=== PATIENT | female | born 1985 | race Two or more races ===

== ENCOUNTER 2024-03-28 21:30 | Emergency (ER) | payer MEDICAID ==
[2024-03-28 22:31] VITALS: BP 109/74; PULSE 103; RESP 16; TEMP 97.8
[2024-03-29 01:14] VITALS: O2SAT 96
[2024-03-29] MEDS: TETANUS-DIPTH-ACEL PERTUSSIS 0.5ML SYR Tdap IM ONE (01:23)
== END 2024-03-29 01:34 | disposition home or self-care (01) ==
LOC: ER 21:30
DX: S61.217A Laceration without foreign body of left little finger without damage to nail, initial encounter (principal); W26.8XXA Contact with other sharp object(s), not elsewhere classified, initial encounter; Y93.89 Activity, other specified; Y92.89 Other specified places as the place of occurrence of the external cause; Y99.8 Other external cause status
CPT/HCPCS: 12001; 90471; 90715

== ENCOUNTER 2025-04-15 12:23 | Inpatient (IN) | payer MEDICAID ==
[~2025-04-15] VITALS: Ht 165.1 cm; Wt 87.9 kg
[2025-04-15 13:50] LABS: Basophils # (auto) 0.1 10 ^3/uL (0-0.2); Basophils % (auto) 0.6 % (0.0-2.0); Eosinophils # (auto) 0.2 10 ^3/uL (0-0.8); Hematocrit 45.7 % (36.0-46.0); Hemoglobin 15.3 g/dL (12.2-16.2); Lymphocytes # (auto) 2.5 10 ^3/uL (0.4-5.4); Lymphocytes % (auto) 26.9 % (10.0-50.0); Mean Corpuscular Hemoglobin 28.5 pg (28.0-32.0); Mean Corpuscular Hgb Conc. 33.6 g/dL (32.0-36.0); Mean Corpuscular Volume 84.8 fL (80.0-100.0); Monocytes # (auto) 0.7 10 ^3/uL (0-1.3); Monocytes % (auto) 7.9 % (0.0-12.0); Neutrophils # (auto) 5.9 10 ^3/uL (1.6-8.6); Neutrophils % (auto) 62.6 % (37.0-80.0); Nucleated Red Blood Cells % 0.2 %; Platelet Count (auto) 283 10^3/uL (140-450); Red Blood Cells 5.39 10^6/uL (4.0-5.20); Red Cell Distribution Width 13.8 % (11.8-14.3); White Blood Cell 9.4 10^3/uL (4.4-10.8)
[2025-04-15 13:54] LABS: Potassium 3.5 mmol/L (3.5-5.1); Sodium 141 mmol/L (136-145)
[2025-04-15 13:55] LABS: Anion Gap 6 (5-15); Carbon Dioxide 27 mmol/L (20-31)
[2025-04-15 13:56] LABS: Calcium 9.3 mg/dL (8.7-10.4); Chloride 108 mmol/L (98-107)
[2025-04-15 14:00] LABS: BUN/Creatinine Ratio 15.6 (10.0-20.0); Blood Urea Nitrogen 10 mg/dL (9-23)
[2025-04-15 14:01] LABS: Glucose 110 mg/dL (74-106)
[2025-04-15 14:15] LABS: Urine Bacteria None Seen /hpf (None Seen)
[2025-04-15 14:23] LABS: Urine Blood Negative /uL (Negative); Urine Clarity Clear (Clear); Urine Color Yellow (Yellow); Urine Mucus FEW (None Seen); Urine Protein, UAD Negative (Negative); Urine Specific Gravity 1.024 (1.001-1.035); Urine Squamous Epithelial Cell FEW /hpf (<5); Urine Urobilinogen Normal (Negative); Urine WBC 1 /HPF (0-5)
--- NOTE | 2025-04-15 14:37 | ED.PDOC ---
History of Present Illness HPI Comments 39-year-old female presents to the ER with daughter and the surgical history of , tubal removal and the chief complaint of rectal bleeding. Pt reports that in September of the year 2023, she was diagnosed with ulcerative colitis. Patient states that on of 04/08/2025, the patient had rectal bleeding, but ended the same day. Patient notes that the reason she is here today is because she had rectal bleeding for the past two days. Denies chills, fever, N/V/D, SOB, CP. No other associated symptoms, modifiers, recent injuries or sick contacts present at this time. Chief Complaint: GI Bleed Time Seen by MD: 14:00 Primary Care Provider: GROSS Reviewed Notes: Nurses Notes, Medications, Allergies Allergies: Coded Allergies: NO KNOWN ALLERGIES (Unverified , 11/26/14) Information Source: Patient Mode of Arrival: Ambulatory Severity: Moderate Timing: Days Duration: Since onset, Days Prehospital treatment: None Past Medical History PAST MEDICAL HISTORY: Denies Surgical History: Surgical History (Other): tubal removed STUDENT SUCCESS COUNSELOR History: No Pertinent STUDENT SUCCESS COUNSELOR History Family History Family History: Reviewed,noncontributory to illness, Unknown Social History Smoker: Non-Smoker Alcohol: Denies ETOH Use Drugs: Denies Drug Use Lives In: Home Constitutional: denies: chills, diaphoresis, fatigue, fever, malaise, sweats, weakness, others EENTM: denies: blurred vision, double vision, ear bleeding, ear discharge, ear drainage, ear pain, ear ringing, eye pain, eye redness, hearing loss, mouth pain, mouth swelling, nasal discharge, nose bleeding, nose congestion, nose pain, photophobia, tearing, throat pain, throat swelling, voice changes, others Respiratory: denies: cough, hemoptysis, orthopnea, SOB at rest, shortness of breath, SOB with excertion, stridor, wheezing, others Cardiovascular: denies: chest pain, dizzy spells, diaphoresis, Dyspnea on exertion, edema, irregular heart beat, left arm pain, lightheadedness, palpitations, PND, syncope, others Gastrointestinal: reports: rectal bleeding; denies: abdomen distended, abdominal pain, blood streaked bowels, constipated, diarrhea, dysphagia, diff iculty swallowing, hematemesis, melena, nausea, poor appetite, poor fluid intake, rectal pain, vomiting, others Genitourinary: denies: abnormal vagina bleeding, burning, dyspareunia, dysuria, flank pain, frequency, hematuria, incontinence, pain, , vagina discharge, urgency, others Neurological: denies: dizziness, fainting, headache, left sided numbness, left sided weakness, numbness, paresthesia, pre-existing deficit, right sided numbness, right sided weakness, seizure, speech problems, tingling, tremors, weakness, others Musculoskeletal: denies: back pain, gout, joint pain, joint swelling, muscle pain, muscle stiffness, neck pain, others Integumetry: denies: bruises, change in color, change in hair/nails, dryness, laceration, lesions, lumps, rash, wounds, others Allergic/Immunocompromised: denies: Difficulty Healing, Frequent Infections, Hives, Itching, others Hematologic/Lymphatic: denies: anemia, blood clots, easy bleeding, easy bruising, swollen glands, others Endocrine: denies: excessive hunger, excessive sweating, excessive thirst, excessive urination, flushing, intolerance to cold, intolerance to heat, unexplained weight gain, unexplained weight loss, others Psychiatric: denies: anxiety, bipolar disorder, depression, hopeless, panic disorder, schizophrenia, sleepless, suicidal, others All Other Systems: Reviewed and Negative Physical Exam General Appearance: No Apparent Distress, Normal HEENT: Normal ENT Inspection, Pharynx Normal, TMs Normal Neck: Full Range of Motion, Non-Tender, Normal, Normal Inspection Respiratory: Chest Non-Tender, Lungs Clear, No Accessory Muscle Use, No Re spiratory Distress, Normal Breath Sounds Cardiovascular: No Edema, No JVD, No Murmur, No Gallop, Normal Peripheral Pulses, Regular Rate/Rhythm Breast Exam: Deferred Gastrointestinal: No Organomegaly, Non Tender, No Pulsatile Mass, Normal Bowel Sounds, Soft Genitalia: Deferred Pelvic: Deferred Rectal: Deferred Extremities: No calf tenderness, Normal capillary refill, Normal inspection, Normal range of motion, Non-tender, No pedal edema Musculoskeletal : Apperance: Normal Neurologic: Alert, gynaecological oncologist II-XII nml as Tested, No Motor Deficits, Normal Affect, Normal Mood, No Sensory Deficits Cerebellar Function: Normal Reflexes: Normal Skin: Dry, Normal Color, Warm Lymphatic: No Adenopathy Was a procedure done? Was a procedure done?: No Differential Dx Considerations may include: Crohn's flare, ulcerative colitis flare, enteritis, infectious etiology X-Ray, Labs, Meds, VS Vital Signs Date Time Temp Pulse Resp B/P (MAP) Pulse Ox O2 Delivery O2 Flow Rate FiO2 04/15/25 13:43 98.6 91 18 117/75 (89) 98 98.6 04/15/25 12:33 98.0 106 16 114/77 (89) 97 98.0 Lab Test 04/15/25 13:33 04/15/25 12:34 Range/Units White Blood Count 9.4 4.4-10.8 10^3/uL Red Blood Count 5.39 H 4.0-5.20 10^6/uL Hemoglobin 15.3 12.2-16.2 g/dL Hematocrit 45.7 36.0-46.0 % Mean Corpuscular Volume 84.8 80.0-100.0 fL Mean Corpuscular Hemoglobin 28.5 28.0-32.0 pg Mean Corpuscular Hemoglobin Concent 33.6 32.0-36.0 g/dL Red Cell Distribution Width 13.8 11.8-14.3 % Platelet Count 283 140-450 10^3/uL Mean Platelet Volume 7.2 6.9-10.8 fL Neutrophils (%) (Auto) 62.6 37.0-80.0 % Lymphocytes (%) (Auto) 26.9 10.0-50.0 % Monocytes (%) (Auto) 7.9 0.0-12.0 % Eosinophils (%) (Auto) 2.0 0.0-7.0 % Basophils (%) (Auto) 0.6 0.0-2.0 % Neutrophils # (Auto) 5.9 1.6-8.6 10 ^3/uL Lymphocytes # (Auto) 2.5 0.4-5.4 10 ^3/uL Monocytes # (Auto) 0.7 0-1.3 10 ^3/uL Eosinophils # (Auto) 0.2 0-0.8 10 ^3/uL Basophils # (Auto) 0.1 0-0.2 10 ^3/uL Nucleated Red Blood Cells 0.2 % Sodium Level 141 136-145 mmol/L Potassium Level 3.5 3.5-5.1 mmol/L Chloride Level 108 H 98-107 mmol/L Carbon Dioxide Level 27 20-31 mmol/L Anion Gap 6 5-15 Blood Urea Nitrogen 10 9-23 mg/dL Creatinine 0.64 0.550-1.02 mg/dL Glomerular Filtration Rate Calc 116 >90 mL/min BUN/Creatinine Ratio 15.6 10.0-20.0 Serum Glucose 110 H 74-106 mg/dL Calcium Level 9.3 8.7-10.4 mg/dL Beta HCG, Quantitative 0.7 L 1.5-4.2 mIU/mL Urine Color Yellow Yellow Urine Clarity Clear Clear Urine pH 6.0 5.0-9.0 Urine Specific [place] 1.024 1.001-1.035 Urine Protein Negative Negative Urine Ketones Negative Negative Urine Blood Negative Negative /uL Urine Nitrite Negative Negative Urine Bilirubin Negative Negative Urine Urobilinogen Normal Negative mg/dL Urine Leukocyte Esterase Negative Negative /uL Urine RBC 1 0 - 4 /hpf Urine Microscopic WBC 1 0-5 /HPF Urine Squamous Epithelial Cells Few <5 /hpf Urine Bacteria None seen None Seen /hpf Urine Mucus Few None Seen Urine Glucose Normal Normal mg/dL Urine Test Negative Negative [place] [address] Ph: [phone] DIAGNOSTIC IMAGING Diagnostic Imaging Report : [id number] Signed PATIENT: ALLIE WHEELER ACCT: [id number] UNIT: [id number] : 1985 LOC: ER ROOM / BED: / AGE / SEX: 39 / F ADM STATUS: REG ER SERVICE [id number] ORDERING PHYSICIAN: RENATA AQUINO MD PROCEDURE(s): ABPLIV - CT AB PEL WITH IV CON ONLY REASON: abdominal pain, brbpr ORDER NUMBER(s): [id number], ACCESSION NUMBER(s): [id number] Indication: abdominal pain, brbpr Technique: CT axial images of the abdomen and pelvis are obtained with i ntravenous contrast. Coronal and sagittal reformats were obtained. Radiation Dose Information: CTDI volume is 14.3 mGy. Dose-length product is 157 mGy*cm Comparison: None FINDINGS: Lung bases demonstrate atelectasis. Adrenal glands, spleen, pancreas unremarkable. Hepatic steatosis. 8 mm right hepatic lobe / hepatic dome hypervascular lesion. No CT evidence for cholelithiasis. The kidneys demonstrate no hydronephrosis. Stomach is partially distended. Small bowel loops are normal in caliber. Colonic diverticula. Moderate volume stool in the colon. Normal appendix. Abdominal aorta normal in caliber. Bladder partially distended. Right ovarian/ adnexal cystic lesion with septation measuring 6 cm. Left ovarian cystic lesions measuring 3.6 cm, 2.7 cm. No free pelvic fluid. No inguinal lymphadenopathy. Mild thoracolumbar degenerative disc disease. IMPRESSION: 1. Bilateral ovarian/adnexal cystic lesions including complex right ovarian / adnexal cystic lesion with septation measuring 6 cm. Recommend pelvic ultrasound to further characterize. 2. Colonic diverticular disease. 3. Hepatic steatosis. 4. Right hepatic lobe hypervascular lesion measuring 8 mm which can be further characterized on multiphasic MRI abdomen. 5. Other findings as described. ATED BY: ARTEMIO DICKSON MD DICTATED DATE/TIME: 04/15/25 1524 SIGNED BY: ARTEMIO DICKSON MD SIGNED DATE/TIME: 04/15/25 1524 CC: Time of 1ST Reevaluation: 14:30 Reevaluation 1ST: Unchanged Patient Education/Counseling: Diagnosis, Treatment, Prognosis Family Education/Counseling: Diagnosis, Treatment, Prognosis Departure 1 Departure Time of Disposition: 16:29 (Patient presented with bright red blood per rectum and abdominal pain that was concerning for possible appendicits, gastritis, cholecystitis, colitis, gastroenteritis, sbo, Crohn's disease, ulcerative colitis, or orther possible surgical emergency. Data: 1. I ordered and reviewed the result of at least 3 labs including a CBC, BMP, and Urinalysis. 2. I independently interpreted the following tests: CT Abdoment and Pelvis is concerning for colitis flare .Risk:This patient has a high risk of morbidity due to further diagnostic testing or treatment and may suffer from an acute abdominal process disorder. Workup reveals colitis flare multiple cystic structures from the ovaries. and patient should be admitted for further workup. and possible expert consultation. ) Impression: Primary Impression: Bright red blood per rectum Disposition: ADMITTED INPATIENT Admit to: Med Surg Condition: Serious Critical Care Note Critical Care Time?: Yes Critical care comment: Acute GI bleed Authorized and Performed by: Renata Aquino MD Total critical care time: Approximately 38 minutes Due to a high probability of clinically significant, life threatening de terioration, the patient required my highest level of preparedness to intervene emergently and I personally spent this critical care time directly and personally managing the patient. This critical care time included obtaining a history; examining the patient; pulse oximetry; ordering and review of studies; arranging urgent treatment with development of a management plan; evaluation of patient's response to treatment; frequent reassessment; and, discussions with other providers. This critical care time was performed to assess and manage the high probability of imminent, life-threatening deterioration that could result in multi-organ failure. It was exclusive of separately billable procedures and treating other patients and teaching time. Please see my other sections and the rest of the note for further information on patient assessment and treatment. Stability Stability form required: No I personally scribed for RENATA AQUINO MD ([email or web address]) on 04/15/25 at 14:37. Electronically submitted by Tank Vargas ([email or web address]). I personally scribed for RENATA AQUINO MD ([email or web address]) on 04/15/25 at 15:37. Electronically submitted by Tank Vargas ([email or web address]). RENATA AQUINO MD April 15, 2025 14:37
[2025-04-15] MEDS: IOHEXOL 300 MG/ML 100ML BOTTLE IJ ONE (14:51)
--- NOTE | 2025-04-15 15:27 | DVH ---
Indication: abdominal pain, brbpr Technique: CT axial images of the abdomen and pelvis are obtained with intravenous contrast. Coronal and sagittal reformats were obtained. Radiation Dose Information: CTDI volume is 14.3 mGy. Dose-length product is 157 mGy*cm Comparison: None FINDINGS: Lung bases demonstrate atelectasis. Adrenal glands, spleen, pancreas unremarkable. Hepatic steatosis. 8 mm right hepatic lobe / hepatic dome hypervascular lesion. No CT evidence for cholelithiasis. The kidneys demonstrate no hydronephrosis. Stomach is partially distended. Small bowel loops are normal in caliber. Colonic diverticula. Moderate volume stool in the colon. Normal appendix. Abdominal aorta normal in caliber. Bladder partially distended. Right ovarian/ adnexal cystic lesion with septation measuring 6 cm. Left ovarian cystic lesions measuring 3.6 cm, 2.7 cm. No free pelvic f luid. No inguinal lymphadenopathy. Mild thoracolumbar degenerative disc disease. IMPRESSION: 1. Bilateral ovarian/adnexal cystic lesions including complex right ovarian / adnexal cystic lesion w ith septation measuring 6 cm. Recommend pelvic ultrasound to further characterize. 2. Colonic diverticular disease. 3. Hepatic steatosis. 4. Right hepatic lobe hypervascular lesion measuring 8 mm which can be further characterized on multi phasic MRI abdomen. 5. Other findings as described.
[2025-04-15] MEDS: ONDANSETRON HCL 4 MG/2 ML VIAL IV ONE (20:50)
[2025-04-15] MEDS: MORPHINE SULFATE 4 MG/ML SYR/VIAL IV ONE (20:51)
[2025-04-15] MEDS: SODIUM CHLORIDE 0.9% 1,000 ML IV ONE ×2 (20:52→22:45)
[2025-04-15] MEDS: DexAMETHasone SOD PHOS 10MG/1ML VIAL INJ IV ONE (20:52)
[2025-04-15] MEDS ORDERED: MORPHINE SULFATE INJ 2 MG/ml SYRG IV PRN ×2 (22:45)
[2025-04-15] MEDS ORDERED: HYDROcodone-ACET 5/325MG TAB PO PRN (22:45)
[2025-04-15] MEDS ORDERED: NITROGLYCERIN 0.4 MG SL TAB SL PRN (22:45)
[2025-04-15] MEDS ORDERED: ACETAMINOPHEN 325 MG TAB PO PRN (22:45)
[2025-04-16] VITALS (7 sets, daily range): BP systolic 104–125; BP diastolic 60–77; PULSE 72–107; RESP 16–22; TEMP 97.6–98.5; O2SAT 93–99
--- NOTE | 2025-04-16 01:27 | DVH ---
INDICATION: abnormal findings on ct TECHNIQUE: Multiple real-time grayscale transabdominal sonographic images along with color and duplex Doppler of the uterus and ovaries were obtained. COMPARISON: None Findings/ IMPRESSION: The uterus measures 9.1 x 5.0 x 4.5 cm. Multiple complex nabothian cysts are noted. Endometrium elzbieta sures 1.5 cm. Small amount of free fluid in the pelvic cul-de-sac. The right ovary measures 5.5 x 3. 3 x 6.6 cm. Complex right adnexal lesion measuring 4.3 x 5.3 x 3.3 cm. The left ovary measures 5.1 x 5.4 x 4.8 cm. Complex left renal cyst measuring 3.3 by 2.2 x 4.1 cm. Bilateral color doppler flow is visualized. In correlation with same-day CT abdomen pelvis , the complex cystic lesions do not demon strate solid components. These can be followed periodically with ultrasound or nonemergent MRI.
--- NOTE | 2025-04-16 03:51 | DVHHP2 ---
SAHARA IBARRA IMPORT COORDINATOR 04/16/25 0351: History of Present Illness Reason for Visit: BRBPR History of Present Illness 39-year-old female with pathological history of ulcerative colitis presents with complaints Of bright red blood per rectum Times five days. States rectal bleeding has been continuous. Patient endorsed she was diagnosed with all ulcerative colitis A year ago. Had [facility] last year. At this time patient denies fevers, chills, dizziness, Shortness of breath, chest pain, Nausea, vomiting. GI: Other (Ulcerative colitis) Smoke: No ALCOHOL: none Drugs: None, Marijuana Lives: with Family Review of Systems Constitutional: No: Fever, Chills, Sweats, Weakness, Malaise, Other Eyes: No: Pain, Vision change, Conjunctivae inflammation, Eyelid inflammation, Other, Redness ENT: No: Ear pain, Ear discharge, Nose pain, Nose discharge, Nose congestion, Mouth pain, Mouth swelling, Throat pain, Throat swelling, Other Respiratory: No: Cough, Dry, Shortness of breath, SOB with excertion, Wheezing, Hemoptysis, Pleuritic Pain, Sputum, Wheezing, Other Cardiovascular: No: Chest Pain, Palpitations, Orthopnea, Paroxysmal Noc. Dyspnea, Edema, Lt Headedness, Other Gastrointestinal: Abdominal Pain, Hematochezia; No: Nausea, Vomiting, Diarrhea, Constipation, Melena, Other Genitourinary: No Dysuria, No Frequency, No Incontinence, No Hematuria, No Retention, No Other Musculoskeletal: No: other, neck pain, shoulder pain, arm pain, back pain, hand pain, leg pain, foot pain Skin: No: Rash, Lesions, Jaundice, Bruising, Other Neurological: No: Weakness, Numbness, Incoordination, Change in speech, Confu nathan, Seizures, Other Allergies: Coded Allergies: NO KNOWN ALLERGIES (Unverified , 11/26/14) Medications Current Medications Medications Dose Ordered Sig/Piper Route Start Time Stop Time Status Last Admin Dose Admin Acetaminophen 650 mg Q6HP PRN PO 04/15/25 22:45 Acetaminophen/ Hydrocodone Bitart 1 tab Q4HP PRN PO 04/15/25 22:45 Ondansetron HCl 4 mg Q4HP PRN IV 04/15/25 22:45 Morphine Sulfate 2 mg Q4HPRN PRN IV 04/15/25 22:45 Nitroglycerin 0.4 mg Q5MINP PRN SL 04/15/25 22:45 Morphine Sulfate 2 mg Q30M PRN IV 04/15/25 22:45 Exam Vital Signs Vital Signs Date Time Temp Pulse Resp B/P (MAP) Pulse Ox O2 Delivery O2 Flow Rate FiO2 04/16/25 00:20 Room Air* 0 21 04/16/25 00:20 98.5 90 16 105/60 (75) 95 98.5 General Appearance: Alert, Oriented X3, Cooperative, mild distress HEENT: Atraumatic, PERRLA, EOMI Respiratory: Clear to auscultation, Normal air movement Cardiovascular: Regular rate, Normal S1, Normal S2 Abdominal: Normal bowel sounds, Soft, Other (mild tenderness) Extremities: No clubbing, No cyanosis, No edema Skin: No breakdown Neuro: Normal gait, Normal speech, Strength at /5 X4 ext Psych/Mental Status: Mental status NL, Mood NL Labs/Xrays Labs Test 04/15/25 13:33 04/15/25 12:34 Range/Units White Blood Count 9.4 4.4-10.8 10^3/uL Red Blood Count 5.39 H 4.0-5.20 10^6/uL Hemoglobin 15.3 12.2-16.2 g/dL Hematocrit 45.7 36.0-46.0 % Mean Corpuscular Volume 84.8 80.0-100.0 fL Mean Corpuscular Hemoglobin 28.5 28.0-32.0 pg Mean Corpuscular Hemoglobin Concent 33.6 32.0-36.0 g/dL Red Cell Distribution Width 13.8 11.8-14.3 % Platelet Count 283 140-450 10^3/uL Mean Platelet Volume 7.2 6.9-10.8 fL Neutrophils (%) (Auto) 62.6 37.0-80.0 % Lymphocytes (%) (Auto) 26.9 10.0-50.0 % Monocytes (%) (Auto) 7.9 0.0-12.0 % Eosinophils (%) (Auto) 2.0 0.0-7.0 % Basophils (%) (Auto) 0.6 0.0-2.0 % Neutrophils # (Auto) 5.9 1.6-8.6 10 ^3/uL Lymphocytes # (Auto) 2.5 0.4-5.4 10 ^3/uL Monocytes # (Auto) 0.7 0-1.3 10 ^3/uL Eosinophils # (Auto) 0.2 0-0.8 10 ^3/uL Basophils # (Auto) 0.1 0-0.2 10 ^3/uL Nucleated Red Blood Cells 0.2 % Sodium Level 141 136-145 mmol/L Potassium Level 3.5 3.5-5.1 mmol/L Chloride Level 108 H 98-107 mmol/L Carbon Dioxide Level 27 20-31 mmol/L Anion Gap 6 5-15 Blood Urea Nitrogen 10 9-23 mg/dL Creatinine 0.64 0.550-1.02 mg/dL Glomerular Filtration Rate Calc 116 >90 mL/min BUN/Creatinine Ratio 15.6 10.0-20.0 Serum Glucose 110 H 74-106 mg/dL Calcium Level 9.3 8.7-10.4 mg/dL Beta HCG, Quantitative 0.7 L 1.5-4.2 mIU/mL Urine Color Yellow Yellow Urine Clarity Clear Clear Urine pH 6.0 5.0-9.0 Urine Specific [place] 1.024 1.001-1.035 Urine Protein Negative Negative Urine Ketones Negative Negative Urine Blood Negative Negative /uL Urine Nitrite Negative Negative Urine Bilirubin Negative Negative Urine Urobilinogen Normal Negative mg/dL Urine Leukocyte Esterase Negative Negative /uL Urine RBC 1 0 - 4 /hpf Urine Microscopic WBC 1 0-5 /HPF Urine Squamous Epithelial Cells Few <5 /hpf Urine Bacteria None seen None Seen /hpf Urine Mucus Few None Seen Urine Glucose Normal Normal mg/dL Urine Test Negative Negative Assessment/Plan Assessment/Plan Ulcerative colitis Hematochezia Ovarian lesions 8mm hepatic lesion Plan Admit medical floor Consult gastroenterology Consult AUTO GARAGE MECH[employer]IC. Pelvic ultrasound. IVF Monitor CBC. MRI abdomen for liver nodule GI ppx protonix / dvt ppx scd Plan discussed with: Patient My Orders Orders - SAHARA IBARRA NP Procedure Category Date Status Time Admit ADMIT 04/15/25 Transmitted 22:32 Code Status CODE 04/15/25 Transmitted 22:32 Vital Signs JESUS 04/15/25 In Process 22:32 Review Orders With JESUS 04/15/25 In Process Adm. 22:32 Encourage Activity As JESUS 04/15/25 In Process Tolerate 22:32 Oxygen By Face Mask RT 04/15/25 Transmitted 22:32 Acetaminophen Tablet PHA 04/15/25 In Process (Tylenol Tablet) 22:45 Notify Of Changes JESUS 04/15/25 In Process From Base 22:32 Advance Directive JESUS 04/15/25 In Process 22:32 Basic Metabolic Panel LAB 04/16/25 Logged 05:00 Basic Metabolic Panel LAB 04/17/25 Verified 05:00 Basic Metabolic Panel LAB 04/18/25 Verified 05:00 Complete Blood Count LAB 04/16/25 Logged 05:00 Complete Blood Count LAB 04/17/25 Verified 05:00 Complete Blood Count LAB 04/18/25 Verified 05:00 Patient Condition ORDERS 04/15/25 Transmitted 22:32 Allergies JESUS 04/15/25 In Process 22:32 Hydrocodone-Acet PHA 04/15/25 In Process 5/325mg Tab (Kite 22:45 Ondansetron Hcl PHA 04/15/25 In Process (Zofran) 22:45 Ambulate Every 4hours JESUS 04/15/25 In Process 22:32 Morphine Sulfate PHA 04/15/25 In Process Injection 22:45 Sequential JESUS 04/15/25 In Process Compression Device Nitroglycerin PHA 04/15/25 In Process Sublingual (Ntrostat 22:45 Morphine Sulfate PHA 04/15/25 In Process Injection 22:45 Stat Ekg For Chest JESUS 04/15/25 In Process Pain 22:32 Notify Of Changes JESUS 04/15/25 In Process From Base 22:32 Educational Manager For JESUS 04/15/25 In Process 24 Hours 22:32 Emergency Dysrhythmia JESUS 04/15/25 In Process Protocol 22:32 Rhythm Strips Once JESUS 04/15/25 In Process Every Shift 22:32 Oxygen By Nasal RT 04/15/25 Transmitted Cannula 22:32 Pelvic US 04/15/25 Resulted 22:32 Mri Abdomen No MRI 04/15/25 Logged Contrast 22:32 *[facility] CONS 04/15/25 Transmitted 22:32 Sodium Chloride 0.9% PHA 04/15/25 In Process 22:45 Clear Liq Diet DIET 04/16/25 Transmitted Breakfast * Chief Supply Chain Officer Consultation CONS 04/15/25 Transmitted 22:40 Transvaginal Us Non Ob US 04/16/25 Taken 00:57 Hepatitis B Surface LAB 04/16/25 Logged Antigen 00:57 Hepatitis C Antibody LAB 04/16/25 Logged 00:57 Hepatitis B Surface LAB 04/16/25 Logged Antibody 00:57 Hepatitis C Antibody LAB 04/16/25 Logged 05:00 Date of Service: April 16, 2025 Billing Provider: MATT CARCAMO MD Common Visit Codes: NOT BILLABLE MATT CARCAMO MD 04/16/25 1652: Review of Systems Allergies: Coded Allergies: NO KNOWN ALLERGIES (Unverified , 11/26/14) Assessment/Plan Assessment/Plan Patient's chart is reviewed and discussed with the nurse practitioner. Patient is seen and evaluated by me today. I agree with the nurse practitioner's evaluation, documentation, assessment and care plan as outlined. SAHARA IBARRA NP April 16, 2025 03:51 MATT CARCAMO MD April 16, 2025 16:52
[2025-04-16] MEDS: ONDANSETRON HCL 4 MG/2 ML VIAL IV PRN (05:12)
[2025-04-16 05:31] LABS: Basophils # (auto) 0 10 ^3/uL (0-0.2); Basophils % (auto) 0.1 % (0.0-2.0); Eosinophils # (auto) 0 10 ^3/uL (0-0.8); Eosinophils % (auto) 0.1 % (0.0-7.0); Hematocrit 44.2 % (36.0-46.0); Hemoglobin 15.1 g/dL (12.2-16.2); Lymphocytes # (auto) 0.9 10 ^3/uL (0.4-5.4); Mean Corpuscular Hemoglobin 28.9 pg (28.0-32.0); Mean Corpuscular Hgb Conc. 34.2 g/dL (32.0-36.0); Mean Corpuscular Volume 84.6 fL (80.0-100.0); Monocytes # (auto) 0.1 10 ^3/uL (0-1.3); Monocytes % (auto) 1.1 % (0.0-12.0); Neutrophils # (auto) 7.6 10 ^3/uL (1.6-8.6); Neutrophils % (auto) 87.7 % (37.0-80.0); Nucleated Red Blood Cells % 0.1 %; Platelet Count (auto) 278 10^3/uL (140-450); Red Blood Cells 5.23 10^6/uL (4.0-5.20); Red Cell Distribution Width 13.8 % (11.8-14.3); White Blood Cell 8.7 10^3/uL (4.4-10.8)
[2025-04-16 05:32] LABS: Sodium 137 mmol/L (136-145)
[2025-04-16 05:33] LABS: Anion Gap 6 (5-15); Calcium 9.2 mg/dL (8.7-10.4); Carbon Dioxide 23 mmol/L (20-31)
[2025-04-16 05:37] LABS: Chloride 108 mmol/L (98-107)
[2025-04-16 05:38] LABS: BUN/Creatinine Ratio 15.7 (10.0-20.0); Blood Urea Nitrogen 11 mg/dL (9-23)
[2025-04-16 05:50] LABS: Glucose 192 mg/dL (74-106)
--- NOTE | 2025-04-16 08:41 | DVH ---
CLINICAL HISTORY: 39 years old, Female; hepatic lesion. TECHNIQUE: Multi sequence multi planar MRI images of the abdomen were obtained without IV contrast. COMPARISON: CT dated 04/15/2025. FINDINGS: Corresponding to the enhancing lesion seen in the posterior inferior right hepatic lobe on CT, there is a 0.8 cm T2 hyperintense lesion on this exam. Limited evaluation without postcontrast imaging. There is also a 0.5 cm T2 hyperintense lesion in the right hepatic lobe more superiorly near the dome, which is indeterminate. The spleen, pancreas, adrenal glands, and kidneys are unremarkable . No abdominal aortic aneurysm. No other significant findings are seen. IMPRESSION: Small liver lesions, corresponding to enhancing lesions on prior CT exam. Limited evaluation without postcontrast imaging. Liver mass protocol MRI without and with contrast recommended.
[2025-04-16 10:24] LABS: Hepatitis B Surface Antibody Positive (Negative); Hepatitis B Surface Antigen Negative (Negative)
[2025-04-16 10:36] LABS: Hepatitis C Antibody Negative (Negative)
[2025-04-16 12:58] LABS: Erythrocyte Sedimentation Rate 2 mm/hr (0-20)
--- NOTE | 2025-04-16 15:07 | DVHINCON2 ---
Date of service: April 16, 2025 Referring Physician hospitalist Reason for Consultation lesion on ovary History of Present Illness pt is admitted for ulcerative colitis,she has hx of ovarian cyst and salpingectomy. currently she has a babbitt spinner and is under his care.she denies having any pelvic pain. her last pap was in 2023 .pelvic us reveals 9wks size uterus with complex right adenxa Past Medical History ulcerative colitis Past Surgical History cs,salpingectomyabdominoplasty Family History na Social History na Allergies: Coded Allergies: NO KNOWN ALLERGIES (Unverified , 11/26/14) Current Medications Current Medications Medications (Trade) Dose Ordered Sig/Piper Route PRN Reason Start Time Stop Time Status Last Admin Acetaminophen (Tylenol Tablet) 650 mg Q6HP PRN PO PAIN SCALE 1-3 OR TEMP>100.4 04/15/25 22:45 Acetaminophen/ Hydrocodone Bitart (Echo 5/325MG Tab) 1 tab Q4HP PRN PO MODERATE PAIN (4-6 PAIN SCALE) 04/15/25 22:45 Ondansetron HCl (Zofran) 4 mg Q4HP PRN IV NAUSEA / VOMITING 04/15/25 22:45 04/16/25 05:12 Morphine Sulfate 2 mg Q4HPRN PRN IV SEVERE PAIN (7-10 PAIN SCALE) 04/15/25 22:45 Nitroglycerin (Ntrostat Sublingual) 0.4 mg Q5MINP PRN SL FOR CHEST PAIN 04/15/25 22:45 Morphine Sulfate 2 mg Q30M PRN IV FOR CHEST PAIN 04/15/25 22:45 Mesalamine (DELZICOL Delayed Release Capsule) 800 mg TID PO 04/16/25 14:00 Review of Systems Constitutional: no fever, chill, weight loss HEENT: no eye pain, no hearing loss, no oral lesion, no scleral icterus Heart: no chest pain, no chest pressure Lung: no cough, no dyspnea with exertion Abdomen: see HPI : no pain with urination, normal appearing urine Musculoskeletal: no joint pain, no muscle pain Neurological: no seizure, no loss of sensation, no weakness in extremities Pysch: no depression, no anxiety Derm: no rash, no jaundice Vital Signs Vital Signs Date Time Temp Pulse Resp B/P (MAP) Pulse Ox O2 Delivery O2 Flow Rate FiO2 04/16/25 12:56 97.6 72 19 114/71 (85) 97 97.6 04/16/25 08:00 Room Air* 0 21 Physical Exam SKIN: [nl] HEENT: [nl] NECK: [nl] CARDIAC: [rrr] PULMONARY: [cta] ABDOMEN: [soft,nt] pelvic- ext gent wnl,cx nl,uterus nl size,adenxa nt Labs/Diagnostic Data Labs Test 04/16/25 04:47 04/15/25 13:33 04/15/25 12:34 Range/Units White Blood Count 8.7 4.4-10.8 10^3/uL Red Blood Count 5.23 H 4.0-5.20 10^6/uL Hemoglobin 15.1 12.2-16.2 g/dL Hematocrit 44.2 36.0-46.0 % Mean Corpuscular Volume 84.6 80.0-100.0 fL Mean Corpuscular Hemoglobin 28.9 28.0-32.0 pg Mean Corpuscular Hemoglobin Concent 34.2 32.0-36.0 g/dL Red Cell Distribution Width 13.8 11.8-14.3 % Platelet Count 278 140-450 10^3/uL Mean Platelet Volume 7.5 6.9-10.8 fL Neutrophils (%) (Auto) 87.7 H 37.0-80.0 % Lymphocytes (%) (Auto) 11.0 10.0-50.0 % Monocytes (%) (Auto) 1.1 0.0-12.0 % Eosinophils (%) (Auto) 0.1 0.0-7.0 % Basophils (%) (Auto) 0.1 0.0-2.0 % Neutrophils # (Auto) 7.6 1.6-8.6 10 ^3/uL Lymphocytes # (Auto) 0.9 0.4-5.4 10 ^3/uL Monocytes # (Auto) 0.1 0-1.3 10 ^3/uL Eosinophils # (Auto) 0 0-0.8 10 ^3/uL Basophils # (Auto) 0 0-0.2 10 ^3/uL Nucleated Red Blood Cells 0.1 % Erythrocyte Sedimentation Rate 2 0-20 mm/hr Sodium Level 137 136-145 mmol/L Potassium Level 4.0 3.5-5.1 mmol/L Chloride Level 108 H 98-107 mmol/L Carbon Dioxide Level 23 20-31 mmol/L Anion Gap 6 5-15 Blood Urea Nitrogen 11 9-23 mg/dL Creatinine 0.70 0.550-1.02 mg/dL Glomerular Filtration Rate Calc 113 >90 mL/min BUN/Creatinine Ratio 15.7 10.0-20.0 Serum Glucose 192 H 74-106 mg/dL Calcium Level 9.2 8.7-10.4 mg/dL C-Reactive Protein High Sensitivity 0.22 <1.0 mg/dL Hepatitis B Surface Antigen Negative Negative Hepatitis B Surface Antibody Positive H Negative Hepatitis C Antibody Negative Negative Beta HCG, Quantitative 0.7 L 1.5-4.2 mIU/mL Urine Color Yellow Yellow Urine Clarity Clear Clear Urine pH 6.0 5.0-9.0 Urine Specific [place] 1.024 1.001-1.035 Urine Protein Negative Negative Urine Ketones Negative Negative Urine Blood Negative Negative /uL Urine Nitrite Negative Negative Urine Bilirubin Negative Negative Urine Urobilinogen Normal Negative mg/dL Urine Leukocyte Esterase Negative Negative /uL Urine RBC 1 0 - 4 /hpf Urine Microscopic WBC 1 0-5 /HPF Urine Squamous Epithelial Cells Few <5 /hpf Urine Bacteria None seen None Seen /hpf Urine Mucus Few None Seen Urine Glucose Normal Normal mg/dL Urine Test Negative Negative Primary Diagnosis ulcerative colitis 2' Diagnosis/Comorbidities complex right ovarian cyst Plan fu outpt with director of trauma since it appears to be asymptomatic no further intervention ,will sign off thank you Plan discussed with: Patient Visit Coding OBGYN Date of Service: April 16, 2025 Billing Provider: TONI QUIJANO DO [employer] Common Visit Codes: 20765-RXCYCKH OBS CARE (HIGH), 89611-RKW/OBS DISCH DAY >30MIN TONI QUIJANO DO April 16, 2025 15:07
[2025-04-16] MEDS: GOLYTELY 4L KIT PO ONE (16:47)
[2025-04-16] MEDS: MESALAMINE 400mg Delayed Release Cap PO SCH (18:07)
--- NOTE | 2025-04-16 19:41 | DVHINCON2 ---
DATE OF CONSULTATION: 04/16/2025 INPATIENT GI CONSULTATION NOTE REFERRING PHYSICIAN: Nurse practitioner, Naveed Valenzuela. REASON FOR CONSULTATION: Rectal bleeding. HISTORY OF PRESENT ILLNESS: This is a 39-year-old female who was recently diagnosed with ulcerative colitis with me in the clinic in 09/2024. At that time, she was treated with mesalamine and tapering prednisone and has been doing well. The patient at that time had severe diarrhea and diarrhea has appeared to resolve at that time. After treatment, the patient now presents to the hospital with complaints of recurrent rectal bleeding for the past day. She reports mucus in the stool and bowel movements have been hard and stool has been solid over the last several days. Workup in the ER including CT scan showed bilateral ovarian adnexal cystic lesion, colonic diverticular disease, hepatic steatosis, right hepatic lobe hypervascular lesion measuring 8 mm. There is evidence of moderate stool in the colon as well. The patient has had blood work showing normal hemoglobin at 15.1 and her creatinine is within normal limits. GI is consulted for further input. The patient reports that her symptoms are not consistent with her ulcerative colitis flare like she had back in 09/2024 where she had profuse diarrhea. The patient has been more constipated. The patient denies any abdominal pain as well. There have been no fevers or chills. She denies any NSAID use. Otherwise, her 10-point review of systems is negative. PAST MEDICAL HISTORY: Again noted for recent UC diagnosis, history of for surgery. ALLERGIES: The patient has no known drug allergies. FAMILY HISTORY: Noncontributory currently. PHYSICAL EXAM: VITALS SINGS: Shows temperature is 98, pulse 77, blood pressure is 122/77. GENERAL: She is alert and in no acute distress. She is mildly obese. OROPHARYNX: Dry. LUNGS: Clear. HEART: Regular rate. ABDOMEN: Soft, nondistended, nontender in the lower extremities. EXTREMITIES: No clubbing, cyanosis, or edema. DIAGNOSTIC LABS: Shows WBC is 8.7, hemoglobin 15.1, platelet count is 278, BUN is 11, creatinine 0.7. IMAGING STUDIES: The patient had followup imaging studies including pelvic ultrasound showing renal cysts, ovarian cysts. She also had a followup abdominal MRI with no contrast showing small liver lesion. It was recommended that the liver lesion be followed up with liver mass protocol without and with IV contrast. IMPRESSION: * Rectal bleeding. The patient had colonoscopy with me done in 09/2024 showing evidence of pancolitis. She also had hemorrhoids as well at that time and she was diagnosed with underlying ulcerative colitis. The differentials for her bleeding includes hemorrhoidal bleeding versus an early start of her ulcerative colitis flare. * History of ulcerative colitis. * Abnormal imaging showing possible liver lesion. Recommending repeat MRI with contrast liver protocol as recommended by Radiology. I will defer this to PMD. Recommendation at this time is to check CRP and sed rate. I will go ahead and start the patient on a clear liquid diet and give the patient GoLYTELY to see if this will help with her constipation. We will continue to monitor H and H daily. We will continue the patient on her mesalamine that she was taking as an outpatient and further recommendation will follow depending on her clinical course. MD MARCO Reynoso/GILBERT/LIN TID: [id number] RECEIPT: [id number]
[2025-04-17 01:00] VITALS: BP_SYST 114; BP_SYST 123; BP_DIAS 72; BP_DIAS 73; PULSE 72; PULSE 93; RESP 17; RESP 18; TEMP 97.9; O2SAT 96; O2SAT 97
[2025-04-17 05:00] VITALS: BP 105/63; PULSE 83; RESP 16; TEMP 97.9; O2SAT 98
[2025-04-17 06:50] LABS: Basophils # (auto) 0 10 ^3/uL (0-0.2); Basophils % (auto) 0.3 % (0.0-2.0); Eosinophils # (auto) 0 10 ^3/uL (0-0.8); Eosinophils % (auto) 0.3 % (0.0-7.0); Hematocrit 46.6 % (36.0-46.0); Hemoglobin 15.5 g/dL (12.2-16.2); Lymphocytes # (auto) 3.2 10 ^3/uL (0.4-5.4); Lymphocytes % (auto) 23.4 % (10.0-50.0); Mean Corpuscular Hemoglobin 28.4 pg (28.0-32.0); Mean Corpuscular Hgb Conc. 33.2 g/dL (32.0-36.0); Mean Corpuscular Volume 85.4 fL (80.0-100.0); Monocytes # (auto) 0.9 10 ^3/uL (0-1.3); Monocytes % (auto) 6.5 % (0.0-12.0); Neutrophils # (auto) 9.6 10 ^3/uL (1.6-8.6); Neutrophils % (auto) 69.5 % (37.0-80.0); Nucleated Red Blood Cells % 0.2 %; Platelet Count (auto) 295 10^3/uL (140-450); Red Blood Cells 5.46 10^6/uL (4.0-5.20); White Blood Cell 13.8 10^3/uL (4.4-10.8)
[2025-04-17 07:03] LABS: Anion Gap 11 (5-15); Carbon Dioxide 25 mmol/L (20-31); Sodium 143 mmol/L (136-145)
[2025-04-17 07:04] LABS: Calcium 9.8 mg/dL (8.7-10.4)
[2025-04-17 07:09] LABS: BUN/Creatinine Ratio 14.3 (10.0-20.0); Blood Urea Nitrogen 10 mg/dL (9-23); Glucose 99 mg/dL (74-106)
[2025-04-17 07:17] LABS: Chloride 107 mmol/L (98-107); Potassium 3.4 mmol/L (3.5-5.1)
[2025-04-17 08:00] VITALS: PULSE 78; RESP 18; O2SAT 95
[2025-04-17 08:24] VITALS: BP 98/55; PULSE 78; RESP 19; TEMP 98.2; O2SAT 98
--- NOTE | 2025-04-17 11:35 | DVH ---
EXAM: US Abdomen Limited, Right Upper Quadrant CLINICAL INDICATION: liver lesions TECHNIQUE: Real-time ultrasound of the right upper quadrant with image documentation. COMPARISON: None FINDINGS: LIVER: Fatty infiltration of the liver. Liver measures up to 15.2 cm. No intrahepatic bile duct d ilation. GALLBLADDER: Negative Celis's sign was reported by the truss driver helper. No gallstones. COMMON BILE DUCT: Unremarkable as visualized. No stones. No dilation. Common bile duct measures 0.35 cm in diameter. PANCREAS: Unremarkable as visualized. RIGHT KIDNEY: Unremarkable. No stones. No hydronephrosis. Right kidney measures 10.9 cm. OTHER FINDINGS: . IMPRESSION: 1. Fatty infiltration of the liver. 2. No obvious hepatic mass. These are better demonstrated on recent MRI dated 04/16/2025.
[2025-04-17] MEDS ORDERED: MESA1.2T12 PO (12:01)
[2025-04-17] MEDS ORDERED: SENN-58 PO (12:01)
--- NOTE | 2025-04-17 12:04 | DVHDS2 ---
Discharge Summary Date of Admission April 15, 2025 at 22:32 Date of Discharge: April 17, 2025 Labs/Diagnostic Data: Laboratory Results Test 04/17/25 04:16 04/16/25 04:47 04/15/25 13:33 04/15/25 12:34 White Blood Count 13.8 10^3/uL (4.4-10.8) Red Blood Count 5.46 10^6/uL (4.0-5.20) Hemoglobin 15.5 g/dL (12.2-16.2) Hematocrit 46.6 % (36.0-46.0) Mean Corpuscular Volume 85.4 fL (80.0-100.0) Mean Corpuscular Hemoglobin 28.4 pg (28.0-32.0) Mean Corpuscular Hemoglobin Concent 33.2 g/dL (32.0-36.0) Red Cell Distribution Width 14.0 % (11.8-14.3) Platelet Count 295 10^3/uL (140-450) Mean Platelet Volume 7.8 fL (6.9-10.8) Neutrophils (%) (Auto) 69.5 % (37.0-80.0) Lymphocytes (%) (Auto) 23.4 % (10.0-50.0) Monocytes (%) (Auto) 6.5 % (0.0-12.0) Eosinophils (%) (Auto) 0.3 % (0.0-7.0) Basophils (%) (Auto) 0.3 % (0.0-2.0) Neutrophils # (Auto) 9.6 10 ^3/uL (1.6-8.6) Lymphocytes # (Auto) 3.2 10 ^3/uL (0.4-5.4) Monocytes # (Auto) 0.9 10 ^3/uL (0-1.3) Eosinophils # (Auto) 0 10 ^3/uL (0-0.8) Basophils # (Auto) 0 10 ^3/uL (0-0.2) Nucleated Red Blood Cells 0.2 % Sodium Level 143 mmol/L (136-145) Potassium Level 3.4 mmol/L (3.5-5.1) Chloride Level 107 mmol/L (98-107) Carbon Dioxide Level 25 mmol/L (20-31) Anion Gap 11 (5-15) Blood Urea Nitrogen 10 mg/dL (9-23) Creatinine 0.70 mg/dL (0.550-1.02) Glomerular Filtration Rate Calc 113 mL/min (>90) BUN/Creatinine Ratio 14.3 (10.0-20.0) Serum Glucose 99 mg/dL (74-106) Calcium Level 9.8 mg/dL (8.7-10.4) Erythrocyte Sedimentation Rate 2 mm/hr (0-20) C-Reactive Protein High Sensitivity 0.22 mg/dL (<1.0) Hepatitis B Surface Antigen Negative (Negative) Hepatitis B Surface Antibody Positive (Negative) Hepatitis C Antibody Negative (Negative) Beta HCG, Quantitative 0.7 mIU/mL (1.5-4.2) Urine Color Yellow (Yellow) Urine Clarity Clear (Clear) Urine pH 6.0 (5.0-9.0) Urine Specific [place] 1.024 (1.001-1.035) Urine Protein Negative (Negative) Urine Ketones Negative (Negative) Urine Blood Negative /uL (Negative) Urine Nitrite Negative (Negative) Urine Bilirubin Negative (Negative) Urine Urobilinogen Normal mg/dL (Negative) Urine Leukocyte Esterase Negative /uL (Negative) Urine RBC 1 /hpf (0 - 4) Urine Microscopic WBC 1 /HPF (0-5) Urine Squamous Epithelial Cells Few /hpf (<5) Urine Bacteria None seen /hpf (None Seen) Urine Mucus Few (None Seen) Urine Glucose Normal mg/dL (Normal) Urine Test Negative (Negative) Other Laboratory Tests 04/17/25 04:16 Brief Hx & Hospital Course: 39-year-old female with pathological history of ulcerative colitis presents with complaints Of bright red blood per rectum Times five days. States rectal bleeding has been continuous. Patient endorsed she was diagnosed with all ulcerative colitis A year ago. Had a colonoscopy by [facility] last year. At this time patient denies fevers, chills, dizziness, Shortness of breath, chest pain, Nausea, vomiting. She is admitted and evaluated by OBGYN and temporary help agency referral clerk. Patient treated for constipation felt causing her symptoms. Patient is continued on her medications for ulcerative colitis. Patient is having bowel movements. Pain is resolved. Bleeding per rectum is also significantly improved. Her hemoglobin remained stable. Patient had further evaluations for these liver lesions that were mentioned on the CT then subsequent MRI as well as add ultrasound of the liver. Patient is advised to have outpatient follow up and consider repeating MRI with and without contrast as recommended in six weeks. I have talked with the patient along with the nurse at bedside regarding this. She has verbalized understanding of this and given she is clinically feeling better not having any other acute issues it is felt she could be safely discharged home. Consults/Reason for consult CONSULTATION REPORT . ................................................................................ ............................................................................... Date of service: April 16, 2025 Referring Physician hospitalist Reason for Consultation lesion on ovary History of Present Illness pt is admitted for ulcerative colitis,she has hx of ovarian cyst and salpingectomy. currently she has a assistant import manager and is under his care.she denies having any pelvic pain. her last pap was in 2023 .pelvic us reveals 9wks size uterus with complex right adenxa Primary Diagnosis ulcerative colitis 2' Diagnosis/Comorbidities complex right ovarian cyst Plan fu outpt with boat worker since it appears to be asymptomatic no further intervention ,will sign off thank you Plan discussed with: Patient Visit Coding OBGYN Date of Service: April 16, 2025 Billing Provider: TONI QUIJANO DO [employer] Common Visit Codes: 53293-[id number] OBS CARE (HIGH), 52846-WUT/OBS DISCH DAY >30MIN PROCEDURE(s): MABL - MRI ABDOMEN NO CONTRAST REASON: hepatic lesion ORDER NUMBER(s): [id number], ACCESSION NUMBER(s): [id number] CLINICAL HISTORY: 39 years old, Female; hepatic lesion. TECHNIQUE: Multi sequence multi planar MRI images of the abdomen were obtained without IV contrast. COMPARISON: CT dated 04/15/2025. FINDINGS: Corresponding to the enhancing lesion seen in the posterior inferior right hepatic lobe on CT, there is a 0.8 cm T2 hyperintense lesion on this exam. Limited evaluation without postcontrast imaging. There is also a 0.5 cm T2 hyperintense lesion in the right hepatic lobe more superiorly near the dome, which is indeterminate. The spleen, pancreas, adrenal glands, and kidneys are unremarkable. No abdominal aortic aneurysm. No other significant findings are seen. IMPRESSION: Small liver lesions, corresponding to enhancing lesions on prior CT exam. Limited evaluation without postcontrast imaging. Liver mass protocol MRI without and with contrast recommended. Operations or Procedures PROCEDURE(s): LIVUS - LIVER REASON: liver lesions? ORDER NUMBER(s): [id number], ACCESSION NUMBER(s): [id number] EXAM: US Abdomen Limited, Right Upper Quadrant CLINICAL INDICATION: liver lesions TECHNIQUE: Real-time ultrasound of the right upper quadrant with image documentation. COMPARISON: None FINDINGS: LIVER: Fatty infiltration of the liver. Liver measures up to 15.2 cm. No intrahepatic bile duct dilation. GALLBLADDER: Negative Celis's sign was reported by the farm products shipper. No gallstones. COMMON BILE DUCT: Unremarkable as visualized. No stones. No dilation. Common bile duct measures 0.35 cm in diameter. PANCREAS: Unremarkable as visualized. RIGHT KIDNEY: Unremarkable. No stones. No hydronephrosis. Right kidney measures 10.9 cm. OTHER FINDINGS: . IMPRESSION: 1. Fatty infiltration of the liver. 2. No obvious hepatic mass. These are better demonstrated on recent MRI dated 04/16/2025. ULTATION REPORT . ................................................................................ ............................................................................... DATE OF CONSULTATION: 04/16/2025 INPATIENT GI CONSULTATION NOTE REFERRING PHYSICIAN: Nurse practitioner, Naveed Valenzuela. REASON FOR CONSULTATION: Rectal bleeding. HISTORY OF PRESENT ILLNESS: This is a 39-year-old female who was recently diagnosed with ulcerative colitis with me in the clinic in 09/2024. At that time, she was treated with mesalamine and tapering prednisone and has been doing well. The patient at that time had severe diarrhea and diarrhea has appeared to resolve at that time. After treatment, the patient now presents to the hospital with complaints of recurrent rectal bleeding for the past day. She reports mucus in the stool and bowel movements have been hard and stool has been solid over the last several days. Workup in the ER including CT scan showed bilateral ovarian adnexal cystic lesion, colonic diverticular disease, hepatic steatosis, right hepatic lobe hypervascular lesion measuring 8 mm. There is evidence of moderate stool in the colon as well. The patient has had blood work showing normal hemoglobin at 15.1 and her creatinine is within normal limits. GI is consulted for further input. The patient reports that her symptoms are not consistent with her ulcerative colitis flare like she had back in 09/2024 where she had profuse diarrhea. The patient has been more constipated. The patient denies any abdominal pain as well. There have been no fevers or chills. She denies any NSAID use. Otherwise, her 10-point review of systems is negative. IMPRESSION: * Rectal bleeding. The patient had colonoscopy with me done in 09/2024 showing evidence of pancolitis. She also had hemorrhoids as well at that time and she was diagnosed with underlying ulcerative colitis. The differentials for her bleeding includes hemorrhoidal bleeding versus an early start of her ulcerative colitis flare. * History of ulcerative colitis. * Abnormal imaging showing possible liver lesion. Recommending repeat MRI with contrast liver protocol as recommended by Radiology. I will defer this to PMD. Recommendation at this time is to check CRP and sed rate. I will go ahead and start the patient on a clear liquid diet and give the patient GoLYTELY to see if this will help with her constipation. We will continue to monitor H and H daily. We will continue the patient on her mesalamine that she was taking as an outpatient and further recommendation will follow depending on her clinical course. MD MARCO Reynoso/GILBERT/LIN Condition at Discharge: Stable Final Diagnosis/Problems List Constipation, rectal bleeding, ulcerative colitis, small hyperintense hepatic lesions status post MRI Discharge Disposition: Home Discharge Instruct/Medications Diet: Consistent carbohydrate, Cardiac 2g Na,low cholest Activity: No Restrictions, As Tolerated Follow Up/Referral: Primary care physician in two weeks to have MRI of the liver with and without contrast specific liver protocol in one month to evaluate further hepatic lesions. Follow up with a gastro group/GI for rectal bleeding and colitis and further management Medications: Continue home medications as you were taking and as prescribed New Medications: Mesalamine (Mesalamine Dr) 1.2 Gm Tab 1.2 GM PO BID, #60 TAB Senna (Senokot) 8.6 Mg Tab 1 TAB PO BID, #40 TAB Discharge Statement: "Patient was advised to return to the ER or call 911 if any headaches, dizziness, shortness of breath, chest pain, abdominal pain, bleeding, fevers, or worsening of medical condition. Patient was counseled about treatment plan, medications, possible side effects, patientverbalized understanding. All questions were answered to the best of my ability. This discharge took greater then 30 minutes in planning, reviewing documentation, counseling the patient, and discussing with other team members." ASSESSMENT ASSESSMENT Assessment Constipation, rectal bleeding, ulcerative colitis, small hyperintense hepatic lesions status post MRI MATT CARCAMO MD April 17, 2025 12:04
[2025-04-17 12:50] VITALS: BP 129/86; PULSE 86; RESP 18; TEMP 98; O2SAT 99
[2025-04-17 17:02] VITALS: BP 118/92; PULSE 91; RESP 18; TEMP 98.5; O2SAT 99
== END 2025-04-17 17:30 | disposition home or self-care (01) | DRG 245 ==
LOC: ER 12:27 → OVERFLOW 22:32 → WEST WING 04-16 05:05
PROVIDERS: ADMIT Hospitalist; ATTEND Hospitalist
DX: K51.911 Ulcerative colitis, unspecified with rectal bleeding (principal); R65.10 Systemic inflammatory response syndrome (SIRS) of non-infectious origin without acute organ dysfunction; K76.0 Fatty (change of) liver, not elsewhere classified; K57.30 Diverticulosis of large intestine without perforation or abscess without bleeding; K59.00 Constipation, unspecified; K64.9 Unspecified hemorrhoids; N83.291 Other ovarian cyst, right side; Z98.891 History of uterine scar from previous surgery
CPT/HCPCS: 36415; 74177; 74181; 76705; 76830; 76856; 80048; 81001; 81025; 84702; 85025; 85652; 86141; 86706; 86803; 87340; 96361; 96374; 99291; G0378; J1100; J2405

== ENCOUNTER 2025-05-12 13:25 | Emergency (ER) | payer MEDICAID ==
[~2025-05-12] VITALS: Ht 162.6 cm; Wt 84.2 kg
[~2025-05-12 13:25] MED LIST: MESA1.2T12 PO; SENN-58 PO
--- NOTE | 2025-05-12 14:42 | ED.PDOC ---
History of Present Illness HPI Comments 39-year-old female presents with a chief complaint of anemia and weakness x 1 week. Patient states that she had blood work drawn x 1 week ago and was called last night by her PCP office and was referred to the ER due to having a HGB drop from 15 to 7. [place] her surgeon to follow-up. Patient mentions that she was recently admitted here at this facility for rectal bleeding due to her ulcerative colitis. Patient also points out that she has postsurgical incisions redness/bruising/ecchymosis and she is concerned about it. On exam there is no evidence of infection, normal pulse surgical findings of bruising from the inser tion of the liposuction tools at the anterior abdominal combs. Patient is on steroids PMHx: Ulcerative Colitis PSHx: Liposuction, Discharge Summary from April 17, 2025: History of Present Illness pt is admitted for ulcerative colitis,she has hx of ovarian cyst and salpingectomy. 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 REVIEW OF SYSTEMS: CONSTITUTIONAL: Denies acute: fever, diaphoresis, chills, HEAD: Denies acute: headache, photophobia Eyes: Denies acute: Double vision, vision loss, eye pain, eye discharge. EARS: Denies acute: tinnitus, hearing loss, ear discharge, ear pain, THROAT: Denies acute: sore throat, swelling, difficulty swallowing , pain with swallowing, change in voice. NECK: Denies acute: neck pain, neck swelling, stiff neck. HEART: Denies acute : chest pain, palpitations, LUNGS: Denies acute: SOB, wheezing, cough, hemoptysis ABDOMEN: Denies acute: abdominal pain, Nausea, Vomiting, diarrhea, melena , hematemesis, SKIN: Denies acute: rash, lesions, itchiness. EXTREMITIES: Denies acute: calf pain, numbness, tingling, weakness, denies pain in extremity. Denies acute: Low back pain. Neuro: Denies acute: focal neurological deficit, motor or sensory focal neurological deficit, tremors, seizure like activity, confusion, dizziness, change in mental status, loss of bowel or bladder function, cauda equina like symptoms. : Denies acute: dysuria, hematuria, flank pain, increase in urinary frequency. PSYCH: Denies acute: hallucination, suicidal ideation, homicidal ideation. FEMALE: Denies acute: abnormal vaginal bleeding, foul odor, unusual discharge. PHYSICAL EXAM: General: ---no-----acute distress, awake and alert. Head: normocephalic, atraumatic. Neck: supple, trachea is midline, no swelling. Throat: Normal phonation. Eyes:, no erythema, no purulent discharge, no proptosis, no icterus. Heart: regular rate, regular rhythm, no significant murmur appreciated. Lungs: no apparent respiratory distress, Able to speak in full sentences. No wheezing, no rhonchi, no crackles. No stridors Clear to auscultation bilaterally. Abdomen: non tender to palpation, non distended, soft, no guarding, no rebound, + bowel sounds. Neuro: Awake, Alert, oriented to name, self, situation, follows commands GCS=15. Speech is normal. Skin: no petechia, no purpura, no cyanosis, non-pale, not jaundice. Lower extremities: --no - Pitting edema no deformity, no focal swelling, no calf TTP. Makes eye contact. moves all four extremities. Face: no apparent facial droop. Ambulating in the ED independently. No nuchal rigidity, Kernig's sign, Brudzinski's sign, no meningeal signs. ED COURSE: Chief Complaint: Abnormal LAB's Time Seen by MD: 14:28 Primary Care Provider: GROSS Reviewed Notes: Medications, Allergies Allergies: Coded Allergies: NO KNOWN ALLERGIES (Unverified , 11/26/14) Home Meds Active Scripts Senna (Senokot) 8.6 Mg Tab, 1 TAB PO BID, #40 TAB Prov:MATT CARCAMO MD 04/17/25 Mesalamine (Mesalamine ) 1.2 Gm Tab, 1.2 GM PO BID, #60 TAB Prov:MATT CARCAMO MD 04/17/25 Information Source: Patient Mode of Arrival: Ambulatory Severity: Moderate Past Medical History Past Medical History (Other): Ulcerative Colitis Surgical History: Surgical History (Other): Liposuction INSURANCE PROFESSIONAL History: No Pertinent INSURANCE PROFESSIONAL History Family History Family History: Reviewed,noncontributory to illness, Unknown Social History Smoker: Non-Smoker Alcohol: Denies ETOH Use Drugs: Denies Drug Use Lives In: Home Was a procedure done? Was a procedure done?: No Differential Dx Considerations may include: Postsurgical complication, hematoma, seroma, cellulitis X-Ray, Labs, Meds, VS Vital Signs Date Time Temp Pulse Resp B/P (MAP) Pulse Ox O2 Delivery O2 Flow Rate FiO2 05/12/25 16:07 89 20 98 Room Air 05/12/25 16:07 98.3 89 20 118/68 (85) 98 98.3 05/12/25 13:42 98.2 99 14 117/73 (88) 96 98.2 Lab Test 05/12/25 16:27 05/12/25 14:42 05/12/25 14:33 Range/Units Urine Color Light-yellow Yellow Urine Clarity Clear Clear Urine pH 6.5 5.0-9.0 Urine Specific [place] 1.017 1.001-1.035 Urine Protein Negative Negative Urine Ketones Negative Negative Urine Blood Negative Negative /uL Urine Nitrite Negative Negative Urine Bilirubin Negative Negative Urine Urobilinogen Normal Negative mg/dL Urine Leukocyte Esterase Negative Negative /uL Urine RBC 1 0 - 4 /hpf Urine Microscopic WBC 0-5 /HPF Urine Squamous Epithelial Cells Few <5 /hpf Urine Bacteria None seen None Seen /hpf Urine Mucus Few None Seen Urine Glucose Normal Normal mg/dL White Blood Count 17.5 H 4.4-10.8 10^3/uL Red Blood Count 4.10 4.0-5.20 10^6/uL Hemoglobin 11.6 L 12.2-16.2 g/dL Hematocrit 35.0 L 36.0-46.0 % Mean Corpuscular Volume 85.6 80.0-100.0 fL Mean Corpuscular Hemoglobin 28.3 28.0-32.0 pg Mean Corpuscular Hemoglobin Concent 33.0 32.0-36.0 g/dL Red Cell Distribution Width 14.7 H 11.8-14.3 % Platelet Count 528 H 140-450 10^3/uL Mean Platelet Volume 6.3 L 6.9-10.8 fL Neutrophils (%) (Auto) 37.0-80.0 % Lymphocytes (%) (Auto) 10.0-50.0 % Monocytes (%) (Auto) 0.0-12.0 % Basophils (%) (Auto) 0.0-2.0 % Neutrophils # (Auto) 1.6-8.6 10 ^3/uL Lymphocytes # (Auto) 0.4-5.4 10 ^3/uL Monocytes # (Auto) 0-1.3 10 ^3/uL Differential Total Cells Counted 100.0 100 Neutrophils % (Manual) 83 H 37.0-80.0 Band Neutrophils % (Manual) 2 Lymphocytes % (Manual) 10 10.0-50.0 Monocytes % (Manual) 4 0-12 Eosinophils % (Manual) 0 0-7 Basophils % (Manual) 0 0.0-2.0 Metamyelocytes % (manual) 0 Myelocytes % (Manual) 1 Promyelocytes % (Manual) 0 Blast Cells % (Manual) 0 Reactive Lymphocytes 0 Platelet Estimate Increased Sodium Level 139 136-145 mmol/L Potassium Level 3.8 3.5-5.1 mmol/L Chloride Level 104 98-107 mmol/L Carbon Dioxide Level 26 20-31 mmol/L Anion Gap 9 5-15 Blood Urea Nitrogen 13 9-23 mg/dL Creatinine 0.67 0.550-1.02 mg/dL Glomerular Filtration Rate Calc 115 >90 mL/min BUN/Creatinine Ratio 19.4 10.0-20.0 Serum Glucose 118 H 74-106 mg/dL Calcium Level 9.9 8.7-10.4 mg/dL Total Bilirubin 0.4 0.2-1.0 mg/dL Aspartate Amino Transferase (AST) 16 13-40 U/L Alanine Aminotransferase (ALT) 32 7-40 U/L Alkaline Phosphatase 82 46-116 U/L Total Protein 6.9 5.7-8.2 g/dL Albumin 4.4 3.2-4.8 g/dL Urine Test Negative Negative Microbiology Date/Time Source Procedure Growth Status 05/12/25 15:46 Blood Blood Culture - Preliminary NO GROWTH AFTER 24 HOURS OF INCUBATION. Resulted 05/12/25 15:42 Blood Blood Culture - Preliminary NO GROWTH AFTER 24 HOURS OF INCUBATION. Resulted PATIENT: ALLIE WHEELERACCT: [id number]: [id number] : 1985 LOC: ER ROOM / BED: / AGE / SEX: 39 / F ADM STATUS: REG ER SERVICE 1433 ORDERING PHYSICIAN: SELAM ANDRES DO PROCEDURE(s): ABPL - CT AB PEL WO CON-NO ORAL OR IV REASON: Postoperative abdominal wall bruising/contusion/anemia ORDER NUMBER(s): [id number], ACCESSION NUMBER(s): [id number] Indication: Postoperative abdominal wall bruising/contusion/anemia Technique: CT axial images of the abdomen and pelvis are obtained without contrast. Coronal and sagittal reformats were obtained. Radiation Dose Information: CTDI volume is 14.83 mGy. Dose-length product is 904.14 mGy*cm Comparison: 04/15/2025 FINDINGS: There is limited interpretation of the abdomen and pelvis without administration of intravenous contrast. The lung bases demonstrate atelectasis. Adrenal glands, spleen, pancreas unremarkable in shape. Hepatic steatosis.. No CT evidence for cholelithiasis. No hydronephrosis, nephrolithiasis. Stomach is partially distended. Small bowel loops demonstrate Fecal like contents. Moderate volume stool in the colon. No secondary signs for appendicitis. Bladder partially distended. Large complex right ovarian / adnexal lesion measuring 5.9 cm. Left ovarian lesion measuring 3.3 cm. No free pelvic fluid. There is generalized soft tissue edema /hematoma involving the abdomen and pelvis. Soft tissue emphysema in the left anterior abdomen. [id number] thoracolumbar degenerative disc disease. IMPRESSION: 1. Generalized soft tissue edema/ hematoma involving the abdominal and pelvic subcutaneous /soft tissues. 2. No intraperitoneal hematoma. 3. Complex bilateral adnexal lesions. The right lesionm measures 5.9 cm, similar to prior examination. The left lesion is decreased in size. Recommend MRI pelvis with and without contrast to further characterize the right lesion to exclude enhancing component /neoplastic process. 4. Fecal like contents within the small bowel which can be seen with ileus, hypomotility, bowel obstruction. 5. Other findings as described. ATED BY: ARTEMIO DICKSON MD DICTATED DATE/TIME: 05/12/25 161 SIGNED BY: ARTEMIO DICKSON MD SIGNED DATE/TIME: 05/12/251618 Time of 1ST Reevaluation: 14:58 Reevaluation 1ST: Unchanged Time of 2ND Reevaluation: 16:46 (URINALYSIS STILL PENDING) Patient Education/Counseling: Diagnosis, Treatment Family Education/Counseling: No Family Present Comments Patient presented with the above HPI.---anemia evaluation---workup was initiated. patient was found with the above mentioned diagnosis. the following medications were ordered: please refer to order lists of meds and tests obtained by myself Dr. Andres. Patient ED course and VS have been stabilized. Patient has been reassessed in the ED and remained in a stable condition. Pertinent incidental findings were discussed with the patient and/or family. Patient/family voices understanding and is agreeable with plan. Patient has been observed in the ED adequate length of time to insure improvement/stability. Escalation of care considered: Consideration of escalation to observation or admission CT scan shows some abdominal wall small hematoma. Has not appear to be infected. Patient will follow up with her surgeon. No need for emergent intervention at this time. Patient was given a copy of her CT scan report for follow up on incidental findings. Patient has no clinical findings of bowel obstruction or ileus Patient was DISCHARGED home in a stable condition. All the reports of any imaging studies that were ordered by myself were reviewed by myself. Departure 1 Departure Time of Disposition: 15:40 Impression: Primary Impression: Anemia Additional Impression: Postprocedural hematoma of abdominal wall Disposition: HOME / SELF CARE / HOMELESS Condition: Stable Additional Instructions: Additional instructions: You MUST follow-up with your primary care/family doctor in 1 to 2 days. If you are unable to see your primary care/family doctor, please return to our emergency room for re-assessment and re-evaluation in 1 to 2 days. Return to the emergency room here in our facility or to the nearest ER [facility] if your symptoms change or worsen. CONSULTATIONS: you MUST Follow-up for consultation as soon as possible with: -your surgeon who operated are new in 1-2 days. Please call for appointment. Follow up with [facility] in 1-2 days. Please call for appointment. You MUST call the consultants office yourself to make an appointment. You may need to arrange that through your insurance and/or your primary/family doctor. If you are unable to see the technical services consultant in 1 to 2 days, you must return to our emergency room (or any other ER of your choice) for re-assessment and re- evaluation. Adequate fluid hydration. No heavy lifting. Repeat CBC in 48-72 hours. Take daily iron supplements [id number]. Below is a copy of your radiological report for follow up: [address] [address] Ph: [phone] DIAGNOSTIC IMAGING Diagnostic Imaging Report : [id number] Signed PATIENT: ALLIE WHEELER ACCT: [id number] UNIT: [id number] : 1985 LOC: ER ROOM / BED: / AGE / SEX: 39 / F ADM STATUS: REG ER SERVICE 1433 ORDERING PHYSICIAN: SELAM ANDRES DO PROCEDURE(s): ABPL - CT AB PEL WO CON-NO ORAL OR IV REASON: Postoperative abdominal wall bruising/contusion/anemia ORDER NUMBER(s): [id number], ACCESSION NUMBER(s): [id number] Indication: Postoperative abdominal wall bruising/contusion/anemia Technique: CT axial images of the abdomen and pelvis are obtained without contrast. Coronal and sagittal reformats were obtained. Radiation Dose Information: CTDI volume is 14.83 mGy. Dose-length product is 904.14 mGy*cm Comparison: 04/15/2025 FINDINGS: There is limited interpretation of the abdomen and pelvis without administration of intravenous contrast. The lung bases demonstrate atelectasis. Adrenal glands, spleen, pancreas unremarkable in shape. Hepatic steatosis.. No CT evidence for cholelithiasis. No hydronephrosis, nephrolithiasis. Stomach is partially distended. Small bowel loops demonstrate Fecal like contents. Moderate volume stool in the colon. No secondary signs for appendicitis. Bladder partially distended. Large complex right ovarian / adnexal lesion measuring 5.9 cm. Left ovarian lesion measuring 3.3 cm. No free pelvic fluid. There is generalized soft tissue edema /hematoma involving the abdomen and pelvis. Soft tissue emphysema in the left anterior abdomen. [id number] thoracolumbar degenerative disc disease. IMPRESSION: 1. Generalized soft tissue edema/ hematoma involving the abdominal and pelvic subcutaneous /soft tissues. 2. No intraperitoneal hematoma. 3. Complex bilateral adnexal lesions. The right lesionm measures 5.9 cm, similar to prior examination. The left lesion is decreased in size. Recommend MRI pelvis with and without contrast to further characterize the right lesion to exclude enhancing component /neoplastic process. 4. Fecal like contents within the small bowel which can be seen with ileus, hypomotility, bowel obstruction. 5. Other findings as described. ATED BY: ARTEMIO DICKSON MD DICTATED DATE/TIME: 05/12/251618 SIGNED BY: ARTEMIO DICKSON MD SIGNED DATE/TIME: 05/12/251618 CC: Discharged With: Self Critical Care Note Critical Care Time?: No Heart Score Heart Score: Heart Score Response (Comments) Value History N/A 0 EKG N/A 0 Age N/A 0 Risk Factors N/A 0 Troponin N/A 0 Total 0 I personally scribed for SELAM ANDRES DO ([email or web address]) on 05/12/25 at 14:42. Electronically submitted by Manuel Cheng ([email or web address]). I personally scribed for SELAM ANDRES DO ([email or web address]) on 05/12/25 at 14:45. Electronically submitted by Manuel Cheng ([email or web address]). I personally scribed for SELAM ANDRES DO ([email or web address]) on 05/12/25 at 16:51. E lectronically submitted by Manuel Cheng ([email or web address]). SELAM ANDRES DO May 12, 2025 14:42
[2025-05-12 15:05] LABS: White Blood Cell 17.5 10^3/uL (4.4-10.8)
[2025-05-12 15:06] LABS: Hemoglobin 11.6 g/dL (12.2-16.2); Mean Corpuscular Hemoglobin 28.3 pg (28.0-32.0); Mean Corpuscular Volume 85.6 fL (80.0-100.0); Platelet Count (auto) 528 10^3/uL (140-450); Red Cell Distribution Width 14.7 % (11.8-14.3)
[2025-05-12 15:11] LABS: Basophils % (manual) 0 (0.0-2.0); Blast Cells 0; Eosinophils % (manual) 0 (0-7); Metamyelocytes % 0; Promyelocytes % 0; Reactive Lymphocytes 0
[2025-05-12 15:23] LABS: Alanine Aminotransferase 32 U/L (7-40); Albumin 4.4 g/dL (3.2-4.8); Alkaline Phosphatase 82 U/L (46-116); Anion Gap 9 (5-15); Aspartate Aminotransferase 16 U/L (13-40); BUN/Creatinine Ratio 19.4 (10.0-20.0); Blood Urea Nitrogen 13 mg/dL (9-23); Calcium 9.9 mg/dL (8.7-10.4); Carbon Dioxide 26 mmol/L (20-31); Chloride 104 mmol/L (98-107); Potassium 3.8 mmol/L (3.5-5.1); Sodium 139 mmol/L (136-145); Total Protein 6.9 g/dL (5.7-8.2)
[2025-05-12 15:24] LABS: Bilirubin, Total 0.4 mg/dL (0.2-1.0)
[2025-05-12 15:25] LABS: Glucose 118 mg/dL (74-106)
[2025-05-12 15:30] LABS: Band Neutrophils % (manual) 2; Lymphocytes % (manual) 10 (10.0-50.0); Monocytes % (manual) 4 (0-12); Myelocytes % 1; Platelet Estimate Increased
[2025-05-12 16:07] VITALS: BP 118/68; PULSE 89; RESP 20; TEMP 98.3; O2SAT 98
--- NOTE | 2025-05-12 16:22 | DVH ---
Indication: Postoperative abdominal wall bruising/contusion/anemia Technique: CT axial images of the abdomen and pelvis are obtained without contrast. Coronal and sagit bert reformats were obtained. Radiation Dose Information: CTDI volume is 14.83 mGy. Dose-length product is 904.14 mGy*cm Comparison: 04/15/2025 FINDINGS: There is limited interpretation of the abdomen and pelvis without administration of intravenous contr ast. The lung bases demonstrate atelectasis. Adrenal glands, spleen, pancreas unremarkable in shape. Hepatic steatosis.. No CT evidence for chol elithiasis. No hydronephrosis, nephrolithiasis. Stomach is partially distended. Small bowel loops demonstrate Fecal like contents. Moderate volume stool in the colon. No secondary signs for appendicitis. Bladder partially distended. Large complex right ovarian / adnexal lesion measuring 5.9 cm. Left ovar guido lesion measuring 3.3 cm. No free pelvic fluid. There is generalized soft tissue edema /hematoma involving the abdomen and pelvis. Soft tissue emphy sema in the left anterior abdomen. [id number] thoracolumbar degenerative disc disease. IMPRESSION: 1. Generalized soft tissue edema/ hematoma involving the abdominal and pelvic subcutaneous /soft tiss ues. 2. No intraperitoneal hematoma. 3. Complex bilateral adnexal lesions. The right lesionm measures 5.9 cm, similar to prior examinatio n. The left lesion is decreased in size. Recommend MRI pelvis with and without contrast to further characterize the right lesion to exclude enhancing component /neoplastic process. 4. Fecal like contents within the small bowel which can be seen with ileus, hypomotility, bowel obstr uction. 5. Other findings as described.
[2025-05-12 16:45] LABS: Urine Bacteria None Seen /hpf (None Seen)
[2025-05-12 17:07] LABS: Urine Blood Negative /uL (Negative); Urine Clarity Clear (Clear); Urine Color Light-Yellow (Yellow); Urine Mucus FEW (None Seen); Urine Protein, UAD Negative (Negative); Urine Specific Gravity 1.017 (1.001-1.035); Urine Squamous Epithelial Cell FEW /hpf (<5); Urine Urobilinogen Normal (Negative); Urine pH 6.5 (5.0-9.0)
== END 2025-05-12 18:05 | disposition home or self-care (01) ==
LOC: ER 13:32
DX: S30.1XXA Contusion of abdominal wall, initial encounter (principal); D64.9 Anemia, unspecified; Z98.890 Other specified postprocedural states; Z79.899 Other long term (current) drug therapy; X58.XXXA Exposure to other specified factors, initial encounter; Y93.89 Activity, other specified; Y92.89 Other specified places as the place of occurrence of the external cause; Y99.8 Other external cause status
CPT/HCPCS: 36415; 74176; 80053; 81001; 81025; 85007; 85027; 86850; 86900; 86901; 87040

== ENCOUNTER 2025-06-09 23:07 | Inpatient (IN) | payer MEDICAID ==
[~2025-06-09] VITALS: Ht 170.2 cm; Wt 82.6 kg
--- NOTE | 2025-06-09 23:32 | ED.PDOC ---
GI ASSESSMENT HPI Comments 39 year old female presents to the ED with a chief complaint of diarrhea onset 1 week. Patient states she has been experiencing rectal bleeding since April 2025 with intermittent abdominal pain, has appointment with GI specialist on 06/20/25. Patient states rectal bleeding began only with wiping, is currently blood in stool. For the past few weeks, patient noticed bilateral leg swelling with cramping sensation. PMHx ulcerative colitis. Denies chest pain, nausea, vomiting, diarrhea, headache, dizziness, hematemesis, fevers, chills. No other symptoms or modifying factors present at this time. REVIEW OF SYSTEMS: General: No fever, no chills, or fatigue HEENT: No sore throat, no earache, no congestion, no neck pain. Cardiac: No chest pain. No palpitations. Lungs: No shortness of breath, no cough. GI: No nausea, no vomiting, no diarrhea, no constipation, + abdominal pain, + rectal bleeding : No dysuria, frequency, or urgency. No hematuria. Musculoskeletal: No joint pain , no joint swelling, + extremity edema. Skin: No rash, no itching. Neuro: No headache, no dizziness, no weakness PHYSICAL EXAM: General: Awake, alert and oriented. No acute distress. Skin: Skin in warm, dry and intact. Appropriate color for ethnicity. HEENT: The head is normocephalic and atraumatic. Conjunctivae are clear without exudates or hemorrhage. Sclera is non-icteric. EOM are intact. No signs of nystagmus. Eyelids are normal in appearance without swelling or lesions. Oral mucosa is pink and moist Neck: The neck is supple with normal range of motion. No JVD. Cardiac: Heart rate and rhythm are normal. No murmurs, gallops, or rubs are auscultated. Respiratory: No signs of respiratory distress. Lung sounds are clear in all lobes bilaterally without rales, rhonchi, or wheezes. Abdominal: Abdomen is soft, positive generalized tenderness without distention, guarding or rigidity. Extremities: B/L non pitting LE edema Neurological: The patient is awake, alert and oriented to person, place, and time with normal speech. Speech is clear. There is no facial asymmetry. Time Seen by MD: 23:25 Primary Care Provider: GROSS Reviewed Notes: Medications, Allergies Allergies: Coded Allergies: NO KNOWN ALLERGIES (Unverified , 11/26/14) Home Meds Active Scripts Senna (Senokot) 8.6 Mg Tab, 1 TAB PO BID, #40 TAB Prov:MATT CARCAMO MD 04/17/25 Mesalamine (Mesalamine Dr) 1.2 Gm Tab, 1.2 GM PO BID, #60 TAB Prov:MATT CARCAMO MD 04/17/25 Reported Medications Acetaminophen (Acetaminophen) 160 Mg/5 Ml Chen, 250 MG PO, ML 06/10/25 Information Source: Patient Mode of Arrival: Ambulatory Timing: Weeks Duration: Since onset Prehospital treatment: None Quality: Sharp Vomitus: None Stool: Blood Streaked, Loose Severity: Moderate Recent: None Recent Hx of: None Pain Location: Diffuse Associated sign and symptoms: Diarrhea, Abdominal Pain, Blood in Stool Past Medical History Past Medical History (Other): ulcertive colitis Surgical History: , 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 Was a procedure done?: No GI differential Dx Differential Diagnosis: Other (Peptic ulcer disease, esophageal varices,Brenner's esophagus, cancer, diverticular disease, esophageal rupture/perforation, Kaye-Duncan tear) X-Ray, Labs, Meds, VS Vital Signs Date Time Temp Pulse Resp B/P (MAP) Pulse Ox O2 Delivery O2 Flow Rate FiO2 06/09/25 23:28 99.3 113 20 108/55 (72) 94 99.3 Lab Test 06/09/25 23:39 06/09/25 23:27 Range/Units White Blood Count 10.7 4.4-10.8 10^3/uL Red Blood Count 4.04 4.0-5.20 10^6/uL Hemoglobin 10.6 L 12.2-16.2 g/dL Hematocrit 32.6 L 36.0-46.0 % Mean Corpuscular Volume 80.7 80.0-100.0 fL Mean Corpuscular Hemoglobin 26.2 L 28.0-32.0 pg Mean Corpuscular Hemoglobin Concent 32.4 32.0-36.0 g/dL Red Cell Distribution Width 15.0 H 11.8-14.3 % Platelet Count 411 140-450 10^3/uL Mean Platelet Volume 6.7 L 6.9-10.8 fL Neutrophils (%) (Auto) 64.5 37.0-80.0 % Lymphocytes (%) (Auto) 24.5 10.0-50.0 % Monocytes (%) (Auto) 8.9 0.0-12.0 % Eosinophils (%) (Auto) 1.7 0.0-7.0 % Basophils (%) (Auto) 0.4 0.0-2.0 % Neutrophils # (Auto) 6.9 1.6-8.6 10 ^3/uL Lymphocytes # (Auto) 2.6 0.4-5.4 10 ^3/uL Monocytes # (Auto) 1.0 0-1.3 10 ^3/uL Eosinophils # (Auto) 0.2 0-0.8 10 ^3/uL Basophils # (Auto) 0 0-0.2 10 ^3/uL Nucleated Red Blood Cells 0.1 % Sodium Level 139 136-145 mmol/L Potassium Level 3.4 L 3.5-5.1 mmol/L Chloride Level 104 98-107 mmol/L Carbon Dioxide Level 26 20-31 mmol/L Anion Gap 9 5-15 Blood Urea Nitrogen 12 9-23 mg/dL Creatinine 0.85 0.550-1.02 mg/dL Glomerular Filtration Rate Calc 90 >90 mL/min BUN/Creatinine Ratio 14.1 10.0-20.0 Serum Glucose 114 H 74-106 mg/dL Lactic Acid Level 1.5 0.4-2.0 mmol/L Calcium Level 8.6 L 8.7-10.4 mg/dL Magnesium Level 1.8 1.6-2.6 mg/dL Total Bilirubin 0.3 0.2-1.0 mg/dL Aspartate Amino Transferase (AST) 14 13-40 U/L Alanine Aminotransferase (ALT) 15 7-40 U/L Alkaline Phosphatase 91 46-116 U/L Total Protein 6.2 5.7-8.2 g/dL Albumin 3.9 3.2-4.8 g/dL Thyroid Stimulating Hormone (TSH) 1.23 0.55-4.78 uIU/mL Urine Color Yellow Yellow Urine Clarity Clear Clear Urine pH 5.5 5.0-9.0 Urine Specific [place] 1.029 1.001-1.035 Urine Protein Trace H Negative Urine Ketones Negative Negative Urine Blood Negative Negative /uL Urine Nitrite Negative Negative Urine Bilirubin Negative Negative Urine Urobilinogen Normal Negative mg/dL Urine Leukocyte Esterase 1+ Negative /uL Urine RBC 2 0 - 4 /hpf Urine Microscopic WBC 2 0-5 /HPF Urine Squamous Epithelial Cells Few <5 /hpf Urine Bacteria None seen None Seen /hpf Urine Mucus Few None Seen Urine Glucose Normal Normal mg/dL Urine Test Negative Negative Urine Opiates Screen Neg NEGATIVE Urine Fentanyl Screen Neg NEGATIVE Urine Barbiturates Screen Neg NEGATIVE Urine Phencyclidine Screen Neg NEGATIVE Urine Amphetamines Screen Neg NEGATIVE Urine Benzodiazepines Screen Neg NEGATIVE Urine Cocaine Screen Neg NEGATIVE Urine Cannabinoids Screen Pos NEGATIVE Microbiology Date/Time Source Procedure Growth Status 06/09/25 23:27 Voided Urine Urine Culture - Final Complete Time of 1ST Reevaluation: 23:55 Reevaluation 1ST: Unchanged Patient Education/Counseling: Need For Follow Up Family Education/Counseling: No Family Present SEPSIS Sepsis Screen Physician Orders Urine (06/10/25 ) Vital Signs Date Time Temp Pulse Resp B/P (MAP) Pulse Ox O2 Delivery O2 Flow Rate FiO2 06/09/25 23:28 99.3 113 20 108/55 (72) 94 99.3 Laboratory Tests Test 06/09/25 23:39 Lactic Acid Level 1.5 mmol/L (0.4-2.0) White Blood Count 10.7 10^3/uL (4.4-10.8) Departure 1 Departure Time of Disposition: 00:59 Impression: Primary Impression: Anemia Additional Impression: GI bleed Disposition: ADMITTED INPATIENT Condition: Stable Comments Patient admitted to hospitalist service for further treatment, evaluation and monitoring. Extensive evaluation was performed in attempt to identify or rule out: (See differential diagnosis section) The following tests were ordered, and results were reviewed by me and discussed with patient: (See diagnostic results section) The following test were independently interpreted by me: N/A I reviewed and agreed with the following test results read by other providers: N/A I reviewed the following notes from the pt's past medical encounters: N/A Additional information was gathered from interviewing the following independent historians: N/A Discussion of management or test interpretation with external physician/other qualified health career technical supervisor: N/A Addressed an acute or chronic illness that poses a threat to life or bodily function: GI bleed Decision regarding hospitalization or escalation of hospital level of care: Risk and benefits of admission for further treatment of patient's condition was considered. Due to patient's current clinical condition, high risk of decline and poor outcome if discharged and need for further inpatient management and mon itoring, patient will be admitted to the hospital. Drug therapy requiring intensive monitoring for toxicity: N/A Parenteral controlled substances: N/A Decision regarding elective major surgery with identified patient or procedure risk factors: N/A Decision regarding emergency major surgery: N/A Decision not to resuscitate or to de-escalate care because of poor prognosis: N/A Diagnosis or treatment significantly limited by social determinants of health: N/A Critical Care Note Critical Care Time?: No Stability Stability form required: No I personally scribed for MANI LOWERY MD ([email or web address]) on 06/09/25 at 23:32. Electronically submitted by Marilee Beaulieu ([email or web address]). MANI LOWERY MD Jun 09, 2025 23:32
[2025-06-10 00:07] LABS: Hemoglobin 10.6 g/dL (12.2-16.2); Nucleated Red Blood Cells % 0.1 %
[2025-06-10 00:10] LABS: Hematocrit 32.6 % (36.0-46.0); Mean Corpuscular Hemoglobin 26.2 pg (28.0-32.0); Mean Corpuscular Volume 80.7 fL (80.0-100.0)
[2025-06-10 00:12] LABS: Urine Protein, UAD TRACE (Negative)
[2025-06-10 00:20] LABS: Alanine Aminotransferase 15 U/L (7-40); Albumin 3.9 g/dL (3.2-4.8); Alkaline Phosphatase 91 U/L (46-116); Anion Gap 9 (5-15); BUN/Creatinine Ratio 14.1 (10.0-20.0); Blood Urea Nitrogen 12 mg/dL (9-23); Carbon Dioxide 26 mmol/L (20-31); Chloride 104 mmol/L (98-107); Sodium 139 mmol/L (136-145); Total Protein 6.2 g/dL (5.7-8.2)
[2025-06-10 00:21] LABS: Bilirubin, Total 0.3 mg/dL (0.2-1.0)
[2025-06-10 00:31] LABS: Calcium 8.6 mg/dL (8.7-10.4); Glucose 114 mg/dL (74-106); Potassium 3.4 mmol/L (3.5-5.1)
--- NOTE | 2025-06-10 02:20 | DVHHP2 ---
History of Present Illness History of Present Illness Patient is 39 years old female with past medical history of ulcerative colitis, bilateral ovarian cyst, hemorrhoids, hepatic steatosis, ?hepatic lesion came with a complaint of bleeding per rectum and diarrhea. As per patient he has been having bleeding per rectum for last 7 days. Patient also reported she has been having diarrhea for last 7 days, several times a day and she also saw blood while wiping. Patient reported cramping abdominal pain before each bowel movement, pain is intermittent, 10/10, relieved with defecation. Patient also endorsed bilateral leg swelling for last 1 week. Patient denied any fever, nausea, acute joint redness, chest pain or shortness of breath or eating unusual food. Patient was discharged from [facility] on Apr, 2025 for acute exacerbation of ulcerative colitis. Initial lab workup revealed WBC 10.7, hemoglobin 10.6, potassium 3.4, urinalysis leukocyte esterase 1+, WBC too, no bacteria. UDS positive for cannabinoids. 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 Cardiovascular- deny acute chest pain or shortness of breath or cough or palpitation Respiratory denies cough or short of breath or wheezing Musculoskeletal-denies acute joint swelling or tenderness or redness Neurological- denies acute dysarthria, dysphagia, change in vision Psychiatry- denies depression or SI or HI Skin- denies acute rash or purpura Allergies: Coded Allergies: NO KNOWN ALLERGIES (Unverified , 11/26/14) Medications Current Medications Medications Dose Ordered Sig/Piper Route Start Time Stop Time Status Last Admin Dose Admin Sodium Chloride 1,000 ml @ 120 mls/hr Q8H20M IV 06/10/25 02:15 UNV Morphine Sulfate 2 mg Q4HPRN PRN IV 06/10/25 02:15 UNV Exam Vital Signs Vital Signs Date Time Temp Pulse Resp B/P (MAP) Pulse Ox O2 Delivery O2 Flow Rate FiO2 06/09/25 23:28 99.3 113 20 108/55 (72) 94 99.3 Exam General examination- awake, alert, oriented HEENT- PEERLA, no acute nasal discharge Cardiovascular- S1-S2 audible, rate and rhythm regular, no murmur Respiratory- CTAB, no wheeze or rhonchi Gastrointestinal-nontender, bowel sound+. Nondistended Musculoskeletal-no acute joint swelling or tenderness or redness Lower extremity- + bilateral leg swelling Neurological- cranial nerves intact, no acute dysarthria or dysphagia Psychiatry- denies depression or SI or HI Skin- no acute rash or purpura Labs/Xrays Labs Test 06/09/25 23:39 06/09/25 23:27 Range/Units White Blood Count 10.7 4.4-10.8 10^3/uL Red Blood Count 4.04 4.0-5.20 10^6/uL Hemoglobin 10.6 L 12.2-16.2 g/dL Hematocrit 32.6 L 36.0-46.0 % Mean Corpuscular Volume 80.7 80.0-100.0 fL Mean Corpuscular Hemoglobin 26.2 L 28.0-32.0 pg Mean Corpuscular Hemoglobin Concent 32.4 32.0-36.0 g/dL Red Cell Distribution Width 15.0 H 11.8-14.3 % Platelet Count 411 140-450 10^3/uL Mean Platelet Volume 6.7 L 6.9-10.8 fL Neutrophils (%) (Auto) 64.5 37.0-80.0 % Lymphocytes (%) (Auto) 24.5 10.0-50.0 % Monocytes (%) (Auto) 8.9 0.0-12.0 % Eosinophils (%) (Auto) 1.7 0.0-7.0 % Basophils (%) (Auto) 0.4 0.0-2.0 % Neutrophils # (Auto) 6.9 1.6-8.6 10 ^3/uL Lymphocytes # (Auto) 2.6 0.4-5.4 10 ^3/uL Monocytes # (Auto) 1.0 0-1.3 10 ^3/uL Eosinophils # (Auto) 0.2 0-0.8 10 ^3/uL Basophils # (Auto) 0 0-0.2 10 ^3/uL Nucleated Red Blood Cells 0.1 % Sodium Level 139 136-145 mmol/L Potassium Level 3.4 L 3.5-5.1 mmol/L Chloride Level 104 98-107 mmol/L Carbon Dioxide Level 26 20-31 mmol/L Anion Gap 9 5-15 Blood Urea Nitrogen 12 9-23 mg/dL Creatinine 0.85 0.550-1.02 mg/dL Glomerular Filtration Rate Calc 90 >90 mL/min BUN/Creatinine Ratio 14.1 10.0-20.0 Serum Glucose 114 H 74-106 mg/dL Lactic Acid Level 1.5 0.4-2.0 mmol/L Calcium Level 8.6 L 8.7-10.4 mg/dL Total Bilirubin 0.3 0.2-1.0 mg/dL Aspartate Amino Transferase (AST) 14 13-40 U/L Alanine Aminotransferase (ALT) 15 7-40 U/L Alkaline Phosphatase 91 46-116 U/L Total Protein 6.2 5.7-8.2 g/dL Albumin 3.9 3.2-4.8 g/dL Urine Color Yellow Yellow Urine Clarity Clear Clear Urine pH 5.5 5.0-9.0 Urine Specific [place] 1.029 1.001-1.035 Urine Protein Trace H Negative Urine Ketones Negative Negative Urine Blood Negative Negative /uL Urine Nitrite Negative Negative Urine Bilirubin Negative Negative Urine Urobilinogen Normal Negative mg/dL Urine Leukocyte Esterase 1+ Negative /uL Urine RBC 2 0 - 4 /hpf Urine Microscopic WBC 2 0-5 /HPF Urine Squamous Epithelial Cells Few <5 /hpf Urine Bacteria None seen None Seen /hpf Urine Mucus Few None Seen Urine Glucose Normal Normal mg/dL SEPSIS Sepsis Screen Date sepsis recognized/suspect: Jun 09, 2025 Time Sepsis recognized/suspect: 2327 Recent Procedure: No On Antibiotic Therapy: No Respiratory Rate >20: No Heart Rate >90: Yes Temp<36 C (96.8 F) or >38.3 C: No SBP <90 or MAP <65 mmHG: No New Acute Mental Status Change: No Is the patient on CPAP, BIPAP,: No Physician Orders Urine (06/10/25 ) Admit (06/10/25 02:15) Code Status (06/10/25 02:15) Sodium Chloride 0.9% (06/10/25 02:15) Complete Blood Count (06/11/25 04:00) Comprehensive Metabolic Panel (06/11/25 04:00) Npo (Nothing By Mouth) Diet (06/10/25 Breakfast) Morphine Sulfate Injection (06/10/25 02:15) Notify Of Changes From Base (06/10/25 02:15) Stool Occult Blood (06/10/25 02:17) Thyroid Stimulating Hormone (06/10/25 02:17) Pantoprazole (Protonix) (06/10/25 02:30) Pantoprazole (Protonix) (06/10/25 10:00) Magnesium (06/10/25 02:17) Type And Screen (06/10/25 02:17) Vital Signs Date Time Temp Pulse Resp B/P (MAP) Pulse Ox O2 Delivery O2 Flow Rate FiO2 06/09/25 23:28 99.3 113 20 108/55 (72) 94 99.3 Laboratory Tests Test 06/09/25 23:39 Lactic Acid Level 1.5 mmol/L (0.4-2.0) White Blood Count 10.7 10^3/uL (4.4-10.8) Assessment/Plan Assessment/Plan Assessment and plan #Bleeding per rectum likely due to acute exacerbation of ulcerative colitis -colonoscopy on 09/2024 revealed pancolitis, hemorrhoids -ordered methylprednisolone 20 mg IV q.8h -ordered ciprofloxacin 400 mg IV b.i.d. and metronidazole 500 mg IV q.8h -pending GI consult -pending report for Clostridium difficile toxin, stool WBC, stool ova and parasite -pending ESR, CRP # severe ulcerative colitis ---ordered methylprednisolone 20 mg IV q.8h -ordered ciprofloxacin 400 mg IV b.i.d. and metronidazole 500 mg IV q.8h -pending GI consult --pending report for Clostridium difficile toxin, stool culture, stool WBC, stool ova and parasite # Bloody diarrhea likely due to acute exacerbation of ulcerative colitis ---continue IV normal saline as prescribed -continue IV methylprednisolone as prescribed -continue ceftriaxone and metronidazole as prescribed ---pending report for Clostridium difficile toxin, stool culture, stool WBC, stool ova and parasite # abdominal pain likely due to acute exacerbation of ulcerative colitis -continue management as per as -Tylenol PRN #SIRS likely due to acute exacerbation of ulcerative colitis -continue IV normal saline as prescribed -continue ciprofloxacin and metronidazole IV as prescribed -monitor vitals # history of hemorrhoids -avoid constipation # mild anemia -monitor CBC # bilateral leg swelling -pending Doppler study of the lower extremity # bilateral ovarian cyst -follow up outpatient with Gynecology and director of residence life # substance abuse cannabinoids -UDS positive for cannabinoids -patient was counseled about the effect of substance abuse on health PCP- [facility]- Rafa Seals Diet-full liquid diet Goals of care, Code status FULL CODE ; discussed with >15 minutes PUD prophylaxis: Pantoprazole DVT prophylaxis: Patient ambulating Plan discussed with Dr. Frank , nursing staff, Total time spent on patient evaluation, chart review, assessment and plan, discussion discussion >35 minutes Plan discussed with: Patient, Other (RN) My Orders Orders - DEYANIRA KELSEY Procedure Category Date Status Time Urine ED NURSING 06/10/25 Transmitted Admit ADMIT 06/10/25 Transmitted 02:15 Code Status CODE 06/10/25 Transmitted 02:15 Sodium Chloride 0.9% PHA 06/10/25 Logged 02:15 Complete Blood Count LAB 06/11/25 Verified 04:00 Comprehensive LAB 06/11/25 Verified Metabolic Panel 04:00 Npo (Nothing By DIET 06/10/25 Transmitted Mouth) Diet Breakfast Morphine Sulfate PHA 06/10/25 Logged Injection 02:15 Notify Md Of Changes JESUS 06/10/25 In Process From Base 02:15 Stool Occult Blood LAB 06/10/25 Verified 02:17 Thyroid Stimulating LAB 06/10/25 Verified Hormone 02:17 Pantoprazole PHA 06/10/25 Verified (Protonix) 02:30 Pantoprazole PHA 06/10/25 Verified (Protonix) 10:00 Magnesium LAB 06/10/25 Verified 02:17 Type And Screen BBK 06/10/25 Verified 02:17 Date of Service: Jun 10, 2025 Billing Provider: MARTIR FRANK MD Common Visit Codes: 14631-[id number] INP/OBS CARE (HIGH) Secondary Visit Codes: 84978-[id number] CARE PLAN 30 MINUTES DEYANIRA KELSEY Jun 10, 2025 02:20
[2025-06-10] MEDS ORDERED: predniSONE 20 MG TAB PO ONE (02:30)
[2025-06-10] MEDS: MORPHINE SULFATE INJ 2 MG/ml SYRG IV ONE (04:12)
[2025-06-10] MEDS: SODIUM CHLORIDE 0.9% 1,000 ML IV ONE (04:12)
[2025-06-10] MEDS: ONDANSETRON HCL 4 MG/2 ML VIAL IV ONE (04:13)
[2025-06-10] MEDS: POTASSIUM EFFERVESENT TAB 25 MEQ GT ONE (04:13)
[2025-06-10] MEDS: PANTOPRAZOLE 40 MG/10 ML VIAL INJ IV ONE (04:13)
[2025-06-10] MEDS: methylPREDNISolone SOD SUCC 40 MG/ML VL IV ONE (04:14)
[2025-06-10 04:21] LABS: Cannabinoid Screen, Urine Pos (NEGATIVE)
[2025-06-10] MEDS: SODIUM CHLORIDE 0.9% 1,000 ML IV SCH (04:22)
[2025-06-10 04:31] LABS: Amphetamine Screen, Urine Neg (NEGATIVE); Barbiturate Scree,Urine Neg (NEGATIVE); Benzodiazephine Screen, Urine Neg (NEGATIVE); Cocaine Screen, Urine Neg (NEGATIVE); Opiate Scree,Urine Neg (NEGATIVE); Phencyclidine Screen, Urine Neg (NEGATIVE)
[2025-06-10 04:51] VITALS: BP 110/60; PULSE 93; RESP 18; TEMP 97.2; O2SAT 97
[2025-06-10 05:00] VITALS: BP 110/60; PULSE 93; RESP 18; TEMP 97.2; O2SAT 97
[2025-06-10] MEDS: methylPREDNISolone SOD SUCC 40 MG/ML VL IV SCH (05:49)
[2025-06-10] MEDS ORDERED: ACET-2058 PO (06:17)
[2025-06-10 06:53] LABS: Potassium 4.0 mmol/L (3.5-5.1); Sodium 139 mmol/L (136-145)
[2025-06-10 06:54] LABS: Anion Gap 9 (5-15); Carbon Dioxide 22 mmol/L (20-31); Lipase 33.0 U/L (12-53)
[2025-06-10 06:59] LABS: BUN/Creatinine Ratio 17.5 (10.0-20.0); Blood Urea Nitrogen 10 mg/dL (9-23)
[2025-06-10 07:00] LABS: Magnesium 1.8 mg/dL (1.6-2.6)
[2025-06-10 07:03] LABS: Calcium 8.5 mg/dL (8.7-10.4); Chloride 108 mmol/L (98-107); Glucose 112 mg/dL (74-106)
[2025-06-10 07:13] LABS: INR 1.02 (0.9-1.15); Partial Thromboplastin Time 27.6 SEC (24.5-34.5); Prothrombin Time 10.8 sec (9.3-11.8)
[2025-06-10 07:21] LABS: Hemoglobin 10.8 g/dL (12.2-16.2)
[2025-06-10 07:25] LABS: Hematocrit 33.1 % (36.0-46.0); Hemoglobin 10.9 g/dL (12.2-16.2); Mean Corpuscular Hemoglobin 26.4 pg (28.0-32.0); Mean Corpuscular Volume 80.5 fL (80.0-100.0); Nucleated Red Blood Cells % 0.0 %
[2025-06-10 07:26] LABS: Hematocrit 33.0 % (36.0-46.0)
--- NOTE | 2025-06-10 07:39 | DVH ---
CLINICAL HISTORY: Bilateral leg swelling. COMPARISON: None TECHNIQUE: Bilateral lower extremity venous duplex exam was performed. Grayscale, color flow, and spe ctral waveform analysis was performed. The deep veins of the lower extremity were evaluated for compr ession, phasic flow, and augmentation. Color flow and spectral waveform analysis were performed. FINDINGS: This examination demonstrates normal compression, augmentation, and phasic flow of both low er extremities. No evidence for thrombus within the common femoral, femoral, and popliteal veins. In addition, the calf veins demonstrated normal compression and color flow. IMPRESSION: There is no evidence for DVT in either lower extremity.
--- NOTE | 2025-06-10 08:27 | DVHPNRES ---
Progress Note Date Seen: Jun 10, 2025 Resident Creating Document: ESTELLA ADAMSON RESIDENT Medical Necessity Reason Pt with a Central, PICC or Fol: No Subjective Review of Systems Patient is 39 years old female with past medical history of ulcerative colitis, bilateral ovarian cyst, hemorrhoids, hepatic steatosis, ?hepatic lesion came with a complaint of bleeding per rectum and diarrhea. Patient reports having bleeding per rectum for last 7 days along with diarrhea, several times a day and she also saw blood and mucus in her stools. she reports cramping abdominal pain before each bowel movement, pain is intermittent, 10/10, relieved with defecation an increased by any change in position, drinking or eating. further inquiry she says she has dizziness, fatigue and feels slightly tired. Patient also endorsed bilateral leg swelling for last 1 week. Patient denied any fever, nausea, acute joint redness, chest pain or shortness of breath. She reports that she and her friend had coffee and both of them got diarrhea but her friends diarrhea got resolved while her status and which prompted her to visit. Patient was discharged from [facility] on Apr, 2025 for acute exacerbation of ulcerative colitis. Past Medical History: ulcerative colitis, bilateral ovarian cyst, hemorrhoids, hepatic steatosis, hepatic lesion Past Surgical History: , b/l tubal ligation, fat transplant on the right thigh, removal of ovarian cysts Family History: Dad has diabetes mellitus Past Social History: Smokes marijuana, denies smoking cigarettes, denies alcoholism/lives with kids Allergy- none home medication: mesalamine tabs ROS: Patient seen and examined by me in the bedside. Patient reports feeling much better than before but that she still has intermittent abdominal pain. Rest of the ROS is negative. Patient reports: No new complaints Objective vital signs Vital Sign Date Time Temp Pulse Resp B/P (MAP) Pulse Ox O2 Delivery O2 Flow Rate FiO2 06/10/25 05:00 97.2 93 18 110/60 (77) 97 97.2 06/10/25 04:51 Room Air* 0 21 medications Current Medications Medications Dose Ordered Sig/Piper Route Start Time Stop Time Status Last Admin Dose Admin Sodium Chloride 1,000 ml @ 120 mls/hr Q8H20M IV 06/10/25 02:15 Morphine Sulfate 2 mg Q4HPRN PRN IV 06/10/25 02:15 Pantoprazole Sodium 40 mg DAILY IV 06/10/25 10:00 Methylprednisolone Sodium Succinate 20 mg Q8HR IV 06/10/25 06:00 06/10/25 05:49 20 MG Metronidazole 100 ml @ 100 mls/hr Q8HR IV 06/10/25 06:00 06/10/25 05:49 100 MLS/HR Ciprofloxacin 200 ml @ 200 mls/hr Q12HR IV 06/10/25 10:00 Ergocalciferol 50,000 unit Q7D PO 06/10/25 07:30 Examination General examination- awake, alert, oriented HEENT- PEERLA, no acute nasal discharge Cardiovascular- S1-S2 audible, rate and rhythm regular, no murmur Respiratory- clear lung sounds, no wheeze or rhonchi Gastrointestinal-nontender, bowel sound+. Nondistended Musculoskeletal-no acute joint swelling or tenderness or redness Lower extremity- +1 bilateral leg swelling Neurological- cranial nerves intact, no acute dysarthria or dysphagia Psychiatry- normal mental status, denies depression or SI or HI Skin- no acute rash or purpura laboratory and microbiology Laboratory Tests 06/10/25 06:10 Test 06/10/25 06:10 Range/Units Serum Glucose 112 H 74-106 mg/dL Labs and/or images reviewed: Labs reviewed by me, Image(s) reviewed by me Problem List/Assessment/Plan Problem List/Assessment/Plan # Bleeding per rectum likely due to acute exacerbation of ulcerative colitis # severe ulcerative colitis # Hematochesia # R/o C. diff -colonoscopy on 09/2024 revealed pancolitis, hemorrhoids - Ct abd/pel shows wall thickening and inflammatory stranding involving portions of the colon as described above, most consistent with colitis, which may be infectious or inflammatory in nature. -ordered methylprednisolone 20 mg IV q.8h held untill ruled out c. diff -ordered ciprofloxacin 400 mg IV b.i.d. and metronidazole 500 mg IV q.8h -pending GI consult -pending report for Clostridium difficile toxin, stool WBC, stool ova and parasite -pending ESR, CRP #SIRS likely due to acute exacerbation of ulcerative colitis -continue IV normal saline as prescribed -continue ciprofloxacin and metronidazole IV as prescribed -monitor vitals # history of hemorrhoids -avoid constipation # mild anemia -monitor CBC # bilateral leg swelling -Doppler study of the lower extremity: There is no evidence for DVT in either lower extremity. 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 Stevens , nursing staff, Plan discussed with: Patient, Other (rn) Date of Service: Jun 10, 2025 Billing Provider: HORACE STEVENS MD Common Visit Codes: NOT BILLABLE ESTELLA ADAMSON RESIDENT Jun 10, 2025 08:27 BALDO MALIK RESIDENT Jun 10, 2025 13:19 HORACE STEVENS MD Jun 11, 2025 00:02
[2025-06-10] MEDS: ERGOCALCIFEROL 50,000 UNIT(1.25MG) CAP PO SCH (08:36)
[2025-06-10] MEDS: MAGNESIUM SULFATE 1GM/100ML 100 ML IV ONE (08:36)
[2025-06-10 09:00] VITALS: BP 104/64; PULSE 79; RESP 18; TEMP 98.5; O2SAT 95
--- NOTE | 2025-06-10 09:43 | DVH ---
CLINICAL INFORMATION: Abdominal pain. TECHNIQUE: Axial CT images of the abdomen and pelvis were obtained without IV contrast. Coronal and s agittal reformatted images were obtained, reviewed, and stored. Evaluation of the parenchymal organs is limited without IV contrast. Evaluation of the bowel and mesentery is limited without oral contras t. All CT scans at this medical facility are performed using dose modulation techniques as appropriat e to a performed exam including the following: Automated exposure control was utilized; adjustment of the MA and/or KV according to patient size; and use of iterative reconstruction technique. CTDIvol = 14.4 mGy DLP = 888.99 mGy-cm COMPARISON: CT CT AB PEL WO CON-NO ORAL OR IV on DOS: 05/12/25 FINDINGS: Lung bases: Lung bases are clear. Liver: Grossly unremarkable in its noncontrast enhanced appearance. No abnormal density or focal lesi on identified. Biliary: No calcified gallstones or biliary ductal dilatation. Spleen: Unremarkable. Pancreas: Grossly unremarkable in its noncontrast enhanced appearance. Adrenal glands: Unremarkable. No mass. Kidneys: No hydronephrosis. No renal or ureteral calculi. Aorta/Vascular: No aneurysm or significant calcification. Retroperitoneum: No mass or lymphadenopathy. Bowel/mesentery: No small bowel obstruction. Appendix is visualized and appears unremarkable. There is wall thickening and inflammatory stranding visualized in the hepatic flexure of the colon, splenic flexure of the colon, and proximal descending colon, most consistent with colitis, which may be infe ctious or inflammatory in nature. Mild wall thickening and minimal stranding also seen in the rectosi gmoid colon. Pelvic organs: Uterus is anteverted. Complex cystic structure in the right adnexal region measuring u p to 6.6 cm with septation, slightly increased compared with the prior exam. Bladder: Unremarkable. No mass. Abdominal wall: Nonspecific stranding of the ventral abdominal wall, similar in appearance compared t o the prior exam Bones: No acute fracture or suspicious intraosseous lesion. IMPRESSION: 1. Wall thickening and inflammatory stranding involving portions of the colon as described above, mos t consistent with colitis, which may be infectious or inflammatory in nature. Correlate with clinica l findings. 2. Cystic structure in the right adnexal region has increased in size compared to prior exams. Correl ate with clinical findings. MRI may be helpful to further characterize if clinically indicated. 3. Stranding of the ventral abdominal wall appears similar compared to the prior exam, may be sequela e of prior intervention and/or prior inflammation. Correlate with clinical history. 4. Additional findings as described above.
[2025-06-10] MEDS ORDERED: predniSONE 20 MG TAB PO SCH (10:00)
[2025-06-10] MEDS ORDERED: MESALAMINE 1.2 GM PO SCH (10:00)
[2025-06-10] MEDS: PANTOPRAZOLE 40 MG/10 ML VIAL INJ IV SCH (10:57)
[2025-06-10] MEDS: MORPHINE SULFATE INJ 2 MG/ml SYRG IV PRN (10:58)
[2025-06-10] MEDS: CIPROFLOXACIN 400MG/200ML 200 ML IV SCH (11:00)
[2025-06-10 13:00] VITALS: BP 110/65; PULSE 85; RESP 16; TEMP 98; O2SAT 95
[2025-06-10 14:25] LABS: Hematocrit 34.0 % (36.0-46.0); Hemoglobin 10.9 g/dL (12.2-16.2)
[2025-06-10 17:00] VITALS: BP 107/57; PULSE 76; RESP 18; TEMP 98.2; O2SAT 98
[2025-06-10 22:06] LABS: Hemoglobin 11.0 g/dL (12.2-16.2)
[2025-06-10 22:09] LABS: Hematocrit 34.2 % (36.0-46.0)
[2025-06-10 22:32] VITALS: BP 102/61; PULSE 74; RESP 16; TEMP 98.6; O2SAT 99
[2025-06-11] VITALS (7 sets, daily range): BP systolic 103–122; BP diastolic 64–74; PULSE 68–94; RESP 16–20; TEMP 97–98; O2SAT 95–100
[2025-06-11 06:12] LABS: Hematocrit 31.0 % (36.0-46.0); Hemoglobin 10.1 g/dL (12.2-16.2); Mean Corpuscular Hemoglobin 26.2 pg (28.0-32.0); Mean Corpuscular Volume 81.0 fL (80.0-100.0); Nucleated Red Blood Cells % 0.0 %
[2025-06-11 06:24] LABS: Alanine Aminotransferase 10 U/L (7-40); Alkaline Phosphatase 74 U/L (46-116); Anion Gap 7 (5-15); BUN/Creatinine Ratio 10.2 (10.0-20.0); Carbon Dioxide 26 mmol/L (20-31); Glucose 102 mg/dL (74-106); Sodium 142 mmol/L (136-145)
[2025-06-11 06:30] LABS: Albumin 3.5 g/dL (3.2-4.8)
[2025-06-11 06:39] LABS: Bilirubin, Total 0.3 mg/dL (0.2-1.0); Blood Urea Nitrogen 6 mg/dL (9-23); Calcium 8.3 mg/dL (8.7-10.4); Chloride 109 mmol/L (98-107); Potassium 3.4 mmol/L (3.5-5.1); Total Protein 5.6 g/dL (5.7-8.2)
[2025-06-11] MEDS ORDERED: MESALAMINE 400mg Delayed Release Cap PO SCH (07:00)
[2025-06-11] MEDS ORDERED: DICYCLOMINE HCL 10 MG CAP PO PRN (10:00)
[2025-06-11] MEDS: POTASSIUM EFFERVESENT TAB 25 MEQ PO ONE (10:04)
[2025-06-11] MEDS: MESALAMINE 400mg Delayed Release Cap PO ONE (10:56)
--- NOTE | 2025-06-11 13:37 | DVHPNRES ---
Progress Note Date Seen: Jun 11, 2025 Resident Creating Document: ESTELLA ADAMSON RESIDENT Medical Necessity Reason Pt with a Central, PICC or Fol: No Subjective Review of Systems Patient is 39 years old female with past medical history of ulcerative colitis, bilateral ovarian cyst, hemorrhoids, hepatic steatosis, ?hepatic lesion came with a complaint of bleeding per rectum and diarrhea. Patient reports having bleeding per rectum for last 7 days along with diarrhea, several times a day and she also saw blood and mucus in her stools. she reports cramping abdominal pain before each bowel movement, pain is intermittent, 10/10, relieved with defecation an increased by any change in position, drinking or eating. further inquiry she says she has dizziness, fatigue and feels slightly tired. Patient also endorsed bilateral leg swelling for last 1 week. Patient denied any fever, nausea, acute joint redness, chest pain or shortness of breath. She reports that she and her friend had coffee and both of them got diarrhea but her friends diarrhea got resolved while her status and which prompted her to visit. Patient was discharged from [facility] on Apr, 2025 for acute exacerbation of ulcerative colitis. Past Medical History: ulcerative colitis, bilateral ovarian cyst, hemorrhoids, hepatic steatosis, hepatic lesion Past Surgical History: , b/l tubal ligation, fat transplant on the right thigh, removal of ovarian cysts Family History: Dad has diabetes mellitus Past Social History: Smokes marijuana, denies smoking cigarettes, denies alcoholism/lives with kids Allergy- none home medication: mesalamine tabs ROS: Patient seen and examined by me in the bedside. Patient reports feeling much betterAnd er bdominal pain has subsided than before. She reports having only 4- 5 stools yesterday and says that she has evacuated her bowels twice today with the 1st stool having no blood with the 2nd 1 having blood. She does not want any pain management with narcotics And requests for another medicine. Patient reports: No new complaints, Feels better Objective vital signs Vital Sign Date Time Temp Pulse Resp B/P (MAP) Pulse Ox O2 Delivery O2 Flow Rate FiO2 06/11/25 12:52 98.0 94 17 106/72 (83) 99 98.0 06/11/25 08:00 Room Air* 0 21 Total Intake and Output 06/10/25 06/10/25 06/11/25 15:00 23:00 07:00 Intake Total 1260 ml 100 ml 200 ml Balance 1260 ml 100 ml 200 ml medications Current Medications Medications Dose Ordered Sig/Piper Route Start Time Stop Time Status Last Admin Dose Admin Sodium Chloride 1,000 ml @ 120 mls/hr Q8H20M IV 06/10/25 02:15 06/11/25 12:27 120 MLS/HR Pantoprazole Sodium 40 mg DAILY IV 06/10/25 10:00 06/11/25 09:35 40 MG Metronidazole 100 ml @ 100 mls/hr Q8HR IV 06/10/25 06:00 06/11/25 05:31 100 MLS/HR Ciprofloxacin 200 ml @ 200 mls/hr Q12HR IV 06/10/25 10:00 06/11/25 09:35 200 MLS/HR Ergocalciferol 50,000 unit Q7D PO 06/10/25 07:30 06/10/25 08:36 50,000 UNIT Acetaminophen 650 mg Q4HP PRN PO 06/11/25 10:00 Dicyclomine HCl 20 mg QID PRN PO 06/11/25 10:00 Mesalamine 1,200 mg BID PO 06/11/25 22:00 Examination General examination- awake, alert, oriented HEENT- PEERLA, no acute nasal discharge Cardiovascular- S1-S2 audible, rate and rhythm regular, no murmur Respiratory- clear lung sounds, no wheeze or rhonchi Gastrointestinal-nontender, bowel sound+. Nondistended, mild Right lower quadrant tenderness Musculoskeletal-no acute joint swelling or tenderness or redness Lower extremity- +1 bilateral leg swelling Neurological- cranial nerves intact, no acute dysarthria or dysphagia Psychiatry- normal mental status, denies depression or SI or HI Skin- no acute rash or purpura, both louis on both side of the abdomen with sterile bandage for recent liposuction laboratory and microbiology Laboratory Tests 06/11/25 04:57 Test 06/11/25 04:57 Range/Units Serum Glucose 102 74-106 mg/dL Microbiology Date/Time Source Procedure Growth Status 06/10/25 20:47 Stool Stool Culture - Preliminary Resulted 06/10/25 20:47 Stool Shiga Toxin I & II Pending Resulted 06/09/25 23:27 Voided Urine Urine Culture - Preliminary Resulted Labs and/or images reviewed: Labs reviewed by me, Image(s) reviewed by me Problem List/Assessment/Plan Problem List/Assessment/Plan # Bleeding per rectum likely due to acute exacerbation of ulcerative colitis # severe ulcerative colitis # Hematochesia # R/o C. diff #SIRS likely due to acute exacerbation of ulcerative colitis -colonoscopy on 09/2024 revealed pancolitis, hemorrhoids - Ct abd/pel shows wall thickening and inflammatory stranding involving portions of the colon as described above, most consistent with colitis, which may be infectious or inflammatory in nature. -ordered methylprednisolone 20 mg IV q.8h held untill ruled out c. diff -ordered ciprofloxacin 400 mg IV b.i.d. and metronidazole 500 mg IV q.8h -pending GI consult -pending report for Clostridium difficile toxin, stool WBC, stool ova and parasite -pending ESR, CRP -stool for occult blood again because initial FOB negative but patient saying she had another bloody diarrhea so ordered again which came positive - mesalamine home medication resumed -pain medication change from morphine to Bentyl and Tylenol # history of hemorrhoids -avoid constipation # mild anemia -monitor CBC # bilateral leg swelling, ruled out DVT -Doppler study of the lower extremity: There is no evidence for DVT in either lower extremity. 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 Stevens, nursing staff, Plan discussed with: Patient, Other (rn) My Orders My Orders Orders - ESTELLA ADAMSON RESIDENT Procedure Category Date Status Time Mrsa Screen YADIEL 06/10/25 In Process 11:00 Acetaminophen Tablet PHA 06/11/25 In Process (Tylenol Tablet) 10:00 Dicyclomine Capsule PHA 06/11/25 In Process (Bentyl Capsule) 10:[address] Capsule PHA 06/11/25 In Process (Delzicol Delayed 22:00 Dietary Evaluation Review Comments: 1. CCHO-60 diet 2. Avoid cannabinoids 3. Vit D supplementation Expected Outcomes/Goals: no NVD Date of Service: Jun 11, 2025 Billing Provider: HORACE STEVENS MD Common Visit Codes: [id number] INP/OBS CARE(HIGH) ESTELLA ADAMSON RESIDENT Jun 11, 2025 13:37 BALDO MALIK RESIDENT Jun 11, 2025 15:14 HORACE STEVENS MD Jun 11, 2025 21:53
[2025-06-11] MEDS: GABAPENTIN 100 MG CAP PO ONE (17:02)
[2025-06-11] MEDS: DICYCLOMINE HCL (10MG/ML) 2 ML AMPULE IM ONE (17:27)
[2025-06-11] MEDS: MESALAMINE 400mg Delayed Release Cap PO SCH (21:16)
[2025-06-11] MEDS: HYDROcodone-ACET 5/325MG TAB PO ONE (21:16)
[2025-06-11] MEDS: GABAPENTIN 100 MG CAP PO SCH (21:17)
[2025-06-12] VITALS (8 sets, daily range): BP systolic 98–111; BP diastolic 62–79; PULSE 79–105; RESP 16–18; TEMP 97.2–98.1; O2SAT 96–100
[2025-06-12] MEDS: ACETAMINOPHEN 325 MG TAB PO PRN (05:22)
[2025-06-12 08:30] LABS: Hematocrit 33.7 % (36.0-46.0); Hemoglobin 10.7 g/dL (12.2-16.2); Mean Corpuscular Hemoglobin 25.5 pg (28.0-32.0); Mean Corpuscular Volume 80.3 fL (80.0-100.0); Nucleated Red Blood Cells % 0.1 %
[2025-06-12 08:36] LABS: Alanine Aminotransferase 10 U/L (7-40); Albumin 3.5 g/dL (3.2-4.8); Alkaline Phosphatase 70 U/L (46-116); Anion Gap 7 (5-15); BUN/Creatinine Ratio 10.2 (10.0-20.0); Bilirubin, Total 0.3 mg/dL (0.2-1.0); Blood Urea Nitrogen 6 mg/dL (9-23); Calcium 8.8 mg/dL (8.7-10.4); Carbon Dioxide 25 mmol/L (20-31); Chloride 108 mmol/L (98-107); Glucose 90 mg/dL (74-106); Potassium 3.4 mmol/L (3.5-5.1); Sodium 140 mmol/L (136-145); Total Protein 5.7 g/dL (5.7-8.2)
--- NOTE | 2025-06-12 08:42 | DVHPNRES ---
Progress Note Date Seen: Jun 12, 2025 Resident Creating Document: PITER ANTON RESIDENT Medical Necessity Reason Pt with a Central, PICC or Fol: No Subjective Review of Systems Patient is 39 years old female with past medical history of ulcerative colitis, bilateral ovarian cyst, hemorrhoids, hepatic steatosis, ?hepatic lesion came with a complaint of bleeding per rectum and diarrhea. Patient reports having bleeding per rectum for last 7 days along with diarrhea, several times a day and she also saw blood and mucus in her stools. she reports cramping abdominal pain before each bowel movement, pain is intermittent, 10/10, relieved with defecation an increased by any change in position, drinking or eating. further inquiry she says she has dizziness, fatigue and feels slightly tired. Patient also endorsed bilateral leg swelling for last 1 week. Patient denied any fever, nausea, acute joint redness, chest pain or shortness of breath. She reports that she and her friend had coffee and both of them got diarrhea but her friends diarrhea got resolved while her status and which prompted her to visit. Patient was discharged from [facility] on Apr, 2025 for acute exacerbation of ulcerative colitis. Past Medical History: ulcerative colitis, bilateral ovarian cyst, hemorrhoids, hepatic steatosis, hepatic lesion Past Surgical History: , b/l tubal ligation, fat transplant on the right thigh, removal of ovarian cysts Family History: Dad has diabetes mellitus Past Social History: Smokes marijuana, denies smoking cigarettes, denies alcoholism/lives with kids Allergy- none home medication: mesalamine tabs 06/12/2025 interval events: The patient reports she has severe abdominal pain, she could not sleep last night. She has per rectal bleeding and diarrhea too. She notices some fresh blood on the toilet paper. She has no chest pain, shortness of breath, fever or any other complaints today. Review of systems: The patient was seen and examined at the bedside. Overnight events were reviewed. No other complaints were reported except above. Rest of the ROS is negative. Objective vital signs Vital Sign Date Time Temp Pulse Resp B/P (MAP) Pulse Ox O2 Delivery O2 Flow Rate FiO2 06/12/25 05:00 97.7 81 17 108/73 (85) 98 97.7 06/11/25 20:00 Room Air* 0 21 Total Intake and Output 06/11/25 06/11/25 06/12/25 15:00 23:00 07:00 Intake Total 200 ml 2250 ml 450 ml Balance 200 ml 2250 ml 450 ml medications Current Medications Medications Dose Ordered Sig/Piper Route Start Time Stop Time Status Last Admin Dose Admin Pantoprazole Sodium 40 mg DAILY IV 06/10/25 10:00 06/11/25 09:35 40 MG Ergocalciferol 50,000 unit Q7D PO 06/10/25 07:30 06/10/25 08:36 50,000 UNIT Acetaminophen 650 mg Q4HP PRN PO 06/11/25 10:00 06/12/25 05:22 650 MG Dicyclomine HCl 20 mg QID PRN PO 06/11/25 10:00 Mesalamine 1,200 mg BID PO 06/11/25 22:00 06/11/25 21:16 1,200 MG Gabapentin 100 mg TID PO 06/11/25 22:00 06/12/25 05:22 100 MG Prednisone 40 mg DAILY PO 06/12/25 10:00 Morphine Sulfate 1 mg Q6HP PRN IV 06/12/25 08:30 UNV Examination Pt is lying on bed General Appearance: Alert, Oriented X3, Cooperative, Mild distress HEENT: Atraumatic, Mucous membranes moist/pink Respiratory: Clear to auscultation, Normal air movement, No added sounds Cardiovascular: Regular rate, Normal S1, Normal S2, No murmurs Abdominal/ : Active bowel sounds, Soft, no distention, no tenderness Extremities: No edema, Normal pulses, No tenderness/swelling Skin: No Significant rash, except past surgical scars Neuro: Normal speech, sensorimotor deficits none Psych/Mental Status: Mental status NL, Mood NL Nurse was there as director music during examination laboratory and microbiology Laboratory Tests 06/12/25 07:55 Test 06/12/25 07:55 Range/Units Serum Glucose 90 74-106 mg/dL Microbiology Date/Time Source Procedure Growth Status 06/10/25 20:47 Stool Clostridium difficile Toxin Assay - Final Complete 06/10/25 11:00 Nose MRSA Screen - Final Complete 06/09/25 23:27 Voided Urine Urine Culture - Preliminary Resulted Labs and/or images reviewed: Labs reviewed by me, Image(s) reviewed by me (RN) Problem List/Assessment/Plan Problem List/Assessment/Plan # Bleeding per rectum likely due to acute exacerbation of ulcerative colitis # severe ulcerative colitis # Hematochesia # R/o C. diff #SIRS likely due to acute exacerbation of ulcerative colitis -colonoscopy on 09/2024 revealed pancolitis, hemorrhoids - Ct abd/pel shows wall thickening and inflammatory stranding involving portions of the colon as described above, most consistent with colitis, which may be infectious or inflammatory in nature. -ordered methylprednisolone 20 mg IV q.8h held untill ruled out c. diff -ordered ciprofloxacin 400 mg IV b.i.d. and metronidazole 500 mg IV q.8h -pending GI consult -pending report for Clostridium difficile toxin, stool WBC, stool ova and parasite -pending ESR, CRP -stool for occult blood again because initial FOB negative but patient saying she had another bloody diarrhea so ordered again which came positive - mesalamine home medication resumed -pain medication change from morphine to Bentyl and Tylenol -morphine 1 mg p.r.n. was added for abdominal pain. -cholestyramine 4 g and prednisone 60 mg added. -prednisone tapering plan: Prednisone 60 mg for 7 days then 40 mg for another 7 days 30 mg for next 7 days 20 mg for next 7 days and 10 mg for the last 7 days, # history of hemorrhoids -avoid constipation # mild anemia -monitor CBC # bilateral leg swelling, ruled out DVT -Doppler study of the lower extremity: There is no evidence for DVT in either lower extremity. # bilateral ovarian cyst -follow up outpatient with Gynecology and environmental compliance engineer # substance abuse cannabinoids -UDS positive for cannabinoids -patient was counseled about the effect of substance abuse on health # paresthesia of the right upper leg/thigh likely due to surgery -gabapentin given PCP- [facility]- Rafa Seals PUD prophylaxis: Pantoprazole DVT prophylaxis: Patient ambulating Diet-full liquid diet Goals of care, Code status FULL CODE ; discussed with >27 minutes Plan discussed with Dr. Seals, nursing staff, Plan discussed with: Patient, Other (rn) Plan discussed with: Patient, Other (RN) My Orders My Orders Orders - PITER ANTON Procedure Category Date Status Time Morphine Sulfate PHA 06/12/25 Logged Injection 08:30 Dietary Evaluation Review Comments: 1. CCHO-60 diet 2. Avoid cannabinoids 3. Vit D supplementation Expected Outcomes/Goals: no NVD Date of Service: Jun 12, 2025 Billing Provider: HORACE SEALS MD Common Visit Codes: [id number] INP/OBS CARE(HIGH) PITER ANTON RESIDENT Jun 12, 2025 08:42 HORACE SEALS MD Jun 12, 2025 23:10
[2025-06-12] MEDS: LOPERAMIDE HCL 2 MG CAP/TAB PO ONE (10:52)
[2025-06-12] MEDS: predniSONE 20 MG TAB PO SCH (10:52)
[2025-06-12] MEDS: CHOLESTYRAMINE 4 GM POWDER PO SCH (11:54)
[2025-06-12] MEDS: MORPHINE SULFATE INJ 2 MG/ml SYRG IV PRN (21:58)
[2025-06-13] VITALS (7 sets, daily range): BP systolic 105–116; BP diastolic 59–72; PULSE 75–96; RESP 16–19; TEMP 97.2–99.2; O2SAT 95–100
[2025-06-13 06:51] LABS: Hematocrit 32.4 % (36.0-46.0); Hemoglobin 10.7 g/dL (12.2-16.2); Mean Corpuscular Hemoglobin 26.1 pg (28.0-32.0); Mean Corpuscular Volume 78.9 fL (80.0-100.0); Nucleated Red Blood Cells % 0.0 %
[2025-06-13 06:57] LABS: Sodium 141 mmol/L (136-145)
[2025-06-13 06:58] LABS: Anion Gap 9 (5-15); Calcium 9.4 mg/dL (8.7-10.4); Carbon Dioxide 25 mmol/L (20-31)
[2025-06-13 06:59] LABS: Chloride 107 mmol/L (98-107); Potassium 3.4 mmol/L (3.5-5.1)
[2025-06-13 07:03] LABS: Glucose 85 mg/dL (74-106)
[2025-06-13 07:14] LABS: Blood Urea Nitrogen 8 mg/dL (9-23)
[2025-06-13 07:27] LABS: BUN/Creatinine Ratio 14.3 (10.0-20.0)
[2025-06-13] MEDS: predniSONE 20 MG TAB PO SCH (11:04)
[2025-06-13] MEDS: POTASSIUM CHL 20MEQ/100ML 100 ML IV ONE (11:05)
[2025-06-13] MEDS: POTASSIUM EFFERVESENT TAB 25 MEQ PO ONE (13:21)
--- NOTE | 2025-06-13 15:17 | DVHPNRES ---
Progress Note Date Seen: Jun 13, 2025 Resident Creating Document: ESTELLA ADAMSON RESIDENT Medical Necessity Reason Pt with a Central, PICC or Fol: No Subjective Review of Systems Patient is 39 years old female with past medical history of ulcerative colitis, bilateral ovarian cyst, hemorrhoids, hepatic steatosis, ?hepatic lesion came with a complaint of bleeding per rectum and diarrhea. Patient reports having bleeding per rectum for last 7 days along with diarrhea, several times a day and she also saw blood and mucus in her stools. she reports cramping abdominal pain before each bowel movement, pain is intermittent, 10/10, relieved with defecation an increased by any change in position, drinking or eating. further inquiry she says she has dizziness, fatigue and feels slightly tired. Patient also endorsed bilateral leg swelling for last 1 week. Patient denied any fever, nausea, acute joint redness, chest pain or shortness of breath. She reports that she and her friend had coffee and both of them got diarrhea but her friends diarrhea got resolved while her status and which prompted her to visit. Patient was discharged from [facility] on Apr, 2025 for acute exacerbation of ulcerative colitis. Past Medical History: ulcerative colitis, bilateral ovarian cyst, hemorrhoids, hepatic steatosis, hepatic lesion Past Surgical History: , b/l tubal ligation, fat transplant on the right thigh, removal of ovarian cysts Family History: Dad has diabetes mellitus Past Social History: Smokes marijuana, denies smoking cigarettes, denies alcoholism/lives with kids Allergy- none home medication: mesalamine tabs Review of systems: The patient was seen and examined at the bedside. Overnight events were reviewed. patient reports that she had 4-5 stools yesterday but after 12:00 a.m. today morning she has had more episodes about 5 episodes. She says that they are clots of blood in her stool. Abdominal pain has improved after morphine. Rest of the ROS is negative. Objective vital signs Vital Sign Date Time Temp Pulse Resp B/P (MAP) Pulse Ox O2 Delivery O2 Flow Rate FiO2 06/13/25 13:00 99.1 86 18 108/62 (77) 97 99.1 06/12/25 20:00 Room Air* 0 21 Total Intake and Output 06/12/25 06/12/25 06/13/25 15:00 23:00 07:00 Intake Total 118 ml 800 ml 600 ml Balance 118 ml 800 ml 600 ml medications Current Medications Medications Dose Ordered Sig/Piper Route Start Time Stop Time Status Last Admin Dose Admin Pantoprazole Sodium 40 mg DAILY IV 06/10/25 10:00 06/13/25 11:04 40 MG Ergocalciferol 50,000 unit Q7D PO 06/10/25 07:30 06/10/25 08:36 50,000 UNIT Acetaminophen 650 mg Q4HP PRN PO 06/11/25 10:00 06/12/25 05:22 650 MG Dicyclomine HCl 20 mg QID PRN PO 06/11/25 10:00 Mesalamine 1,200 mg BID PO 06/11/25 22:00 06/13/25 11:04 1,200 MG Gabapentin 100 mg TID PO 06/11/25 22:00 06/13/25 13:21 100 MG Morphine Sulfate 1 mg Q6HP PRN IV 06/12/25 08:30 06/13/25 03:43 1 MG Cholestyramine Resin 4 gm Q12HR@ PO 06/12/25 11:00 06/13/25 12:15 4 GM Loperamide HCl 2 mg Q3H PRN PO 06/12/25 10:00 Prednisone 60 mg DAILY PO 06/13/25 10:00 06/13/25 11:04 60 MG Examination Pt is lying on bed General Appearance: Alert, Oriented X3, Cooperative, Mild distress HEENT: Atraumatic, Mucous membranes moist/pink Respiratory: Clear to auscultation, Normal air movement, No added sounds Cardiovascular: Regular rate, Normal S1, Normal S2, No murmurs Abdominal/ : Active bowel sounds, Soft, no distention, no tenderness Extremities: No edema, Normal pulses, No tenderness/swelling Skin: No Significant rash, except past surgical scars Neuro: Normal speech, sensorimotor deficits none Psych/Mental Status: Mental status NL, Mood NL Nurse was there as sr vice president during examination laboratory and microbiology Laboratory Tests 06/13/25 05:00 Test 06/13/25 05:00 Range/Units Serum Glucose 85 74-106 mg/dL Microbiology Date/Time Source Procedure Growth Status 06/10/25 20:47 Stool Clostridium difficile Toxin Assay - Final Complete 06/10/25 11:00 Nose MRSA Screen - Final Complete 06/09/25 23:27 Voided Urine Urine Culture - Final Complete Labs and/or images reviewed: Labs reviewed by me, Image(s) reviewed by me Problem List/Assessment/Plan Problem List/Assessment/Plan # Bleeding per rectum likely due to acute exacerbation of ulcerative colitis # severe ulcerative colitis # Hematochesia # R/o C. diff #SIRS likely due to acute exacerbation of ulcerative colitis -colonoscopy on 09/2024 revealed pancolitis, hemorrhoids - Ct abd/pel shows wall thickening and inflammatory stranding involving portions of the colon as described above, most consistent with colitis, which may be infectious or inflammatory in nature. -ordered methylprednisolone 20 mg IV q.8h held untill ruled out c. diff -ordered ciprofloxacin 400 mg IV b.i.d. and metronidazole 500 mg IV q.8h -pending GI consult -pending report for Clostridium difficile toxin, stool WBC, stool ova and parasite -pending ESR, CRP -stool for occult blood again because initial FOB negative but patient saying she had another bloody diarrhea so ordered again which came positive - mesalamine home medication resumed -pain medication change from morphine to Bentyl and Tylenol -morphine 1 mg p.r.n. was added for abdominal pain. -cholestyramine 4 g and prednisone 60 mg added. -prednisone tapering plan: Prednisone 60 mg for 7 days then 40 mg for another 7 days 30 mg for next 7 days 20 mg for next 7 days and 10 mg for the last 7 days, # history of hemorrhoids -avoid constipation # mild anemia -monitor CBC # bilateral leg swelling, ruled out DVT -Doppler study of the lower extremity: There is no evidence for DVT in either lower extremity. # bilateral ovarian cyst -follow up outpatient with Gynecology and produce team member # substance abuse cannabinoids -UDS positive for cannabinoids -patient was counseled about the effect of substance abuse on health # paresthesia of the right upper leg/thigh likely due to surgery -gabapentin given # hypokalemia -Repleting -Monitor labs PCP- [facility]- Rafa Seals PUD prophylaxis: Pantoprazole DVT prophylaxis: Patient ambulating Diet-full liquid diet Goals of care, Code status FULL CODE ; discussed with >27 minutes Plan discussed with Dr. Seals, nursing staff, Plan discussed with: Patient, Other (rn) Dietary Evaluation Review Comments: 1. CCHO-60 diet 2. Avoid cannabinoids 3. Vit D supplementation Expected Outcomes/Goals: no NVD Date of Service: Jun 13, 2025 Billing Provider: HORACE SEALS MD Common Visit Codes: [id number] INP/OBS CARE(HIGH) ESTELLA ADAMSON RESIDENT Jun 13, 2025 15:17 HORACE SEALS MD Jun 13, 2025 22:43
--- NOTE | 2025-06-13 16:15 | DVHINCON2 ---
Date of service: Jun 13, [address] Gillespie Reason for Consultation Rectal bleeding History of Present Illness 39 year old female presents to the ED with a chief complaint of diarrhea onset 1 week. Patient states she has been experiencing rectal bleeding since April 2025 with intermittent abdominal pain, has appointment with GI specialist on 06/20/25 at [facility]. Patient states rectal bleeding began only with wiping, is currently blood in stool. For the past few weeks, patient noticed bilateral leg swelling with cramping sensation. Patient was hospitalized on 06/10/2025 and she continues to have rectal bleeding and abdominal pain. Denies chest pain, nausea, vomiting, diarrhea, headache, dizziness, hematemesis, fevers, chills. No other symptoms or modifying factors present at this time. Past Medical History Prediabetes Ulcerative colitis Past Surgical History Tubal ligation Family History: Diabetes mellitus G8 FATHER Allergies: Coded Allergies: NO KNOWN ALLERGIES (Unverified , 11/26/14) Home Meds Active Scripts Senna (Senokot) 8.6 Mg Tab, 1 TAB PO BID, #40 TAB Prov:MATT CARCAMO MD 04/17/25 Mesalamine (Mesalamine ) 1.2 Gm Tab, 1.2 GM PO BID, #60 TAB Prov:MATT CARCAMO MD 04/17/25 Reported Medications Acetaminophen (Acetaminophen) 160 Mg/5 Ml Chen, 250 MG PO, ML 06/10/25 Current Medications Current Medications Medications (Trade) Dose Ordered Sig/Piper Route PRN Reason Start Time Stop Time Status Last Admin Prednisone 60 mg DAILY PO 06/13/25 10:00 06/13/25 11:04 Vital Signs Vital Signs Date Time Temp Pulse Resp B/P (MAP) Pulse Ox O2 Delivery O2 Flow Rate FiO2 06/13/25 13:00 99.1 86 18 108/62 (77) 97 99.1 06/13/25 08:00 Room Air* 0 21 Physical Exam Awake and alert Hemodynamically stable No Localizing sign reported Physical examination Labs/Diagnostic Data Labs Test 06/13/25 05:00 06/12/25 07:55 06/11/25 14:35 06/10/25 20:47 Range/Units White Blood Count 10.5 4.4-10.8 10^3/uL Red Blood Count 4.10 4.0-5.20 10^6/uL Hemoglobin 10.7 L 12.2-16.2 g/dL Hematocrit 32.4 L 36.0-46.0 % Mean Corpuscular Volume 78.9 L 80.0-100.0 fL Mean Corpuscular Hemoglobin 26.1 L 28.0-32.0 pg Mean Corpuscular Hemoglobin Concent 33.0 32.0-36.0 g/dL Red Cell Distribution Width 14.4 H 11.8-14.3 % Platelet Count 432 140-450 10^3/uL Mean Platelet Volume 6.7 L 6.9-10.8 fL Neutrophils (%) (Auto) 65.0 37.0-80.0 % Lymphocytes (%) (Auto) 22.1 10.0-50.0 % Monocytes (%) (Auto) 11.4 0.0-12.0 % Eosinophils (%) (Auto) 1.3 0.0-7.0 % Basophils (%) (Auto) 0.2 0.0-2.0 % Neutrophils # (Auto) 6.8 1.6-8.6 10 ^3/uL Lymphocytes # (Auto) 2.3 0.4-5.4 10 ^3/uL Monocytes # (Auto) 1.2 0-1.3 10 ^3/uL Eosinophils # (Auto) 0.1 0-0.8 10 ^3/uL Basophils # (Auto) 0 0-0.2 10 ^3/uL Nucleated Red Blood Cells 0.0 % Sodium Level 141 136-145 mmol/L Potassium Level 3.4 L 3.5-5.1 mmol/L Chloride Level 107 98-107 mmol/L Carbon Dioxide Level 25 20-31 mmol/L Anion Gap 9 5-15 Blood Urea Nitrogen 8 L 9-23 mg/dL Creatinine 0.56 0.550-1.02 mg/dL Glomerular Filtration Rate Calc 120 >90 mL/min BUN/Creatinine Ratio 14.3 10.0-20.0 Serum Glucose 85 74-106 mg/dL Calcium Level 9.4 8.7-10.4 mg/dL Magnesium Level 2.0 1.6-2.6 mg/dL Total Bilirubin 0.3 0.2-1.0 mg/dL Aspartate Amino Transferase (AST) 13 13-40 U/L Alanine Aminotransferase (ALT) 10 7-40 U/L Alkaline Phosphatase 70 46-116 U/L Total Protein 5.7 5.7-8.2 g/dL Albumin 3.5 3.2-4.8 g/dL Stool Occult Blood Positive Negative Stool Occult Blood Sample #3 Negative Stool for White Cells None seen Test 06/10/25 06:10 06/09/25 23:39 06/09/25 23:27 Range/Units Erythrocyte Sedimentation Rate 26 H 0-20 mm/hr Prothrombin Time 10.8 9.3-11.8 sec Prothrombin Time INR 1.02 0.9-1.15 Activated Partial Thromboplast Time 27.6 24.5-34.5 SEC Hemoglobin A1c 5.3 <5.7 % A1C Lactic Acid Level 0.9 0.4-2.0 mmol/L C-Reactive Protein High Sensitivity 1.93 H <1.0 mg/dL Lipase 33 12-53 U/L Vitamin B12 Level 469 211-911 pg/mL Vitamin D 25-Hydroxy 25.6 L 30.0-100 ng/mL Folic Acid 8.97 >5.38 ng/mL Thyroid Stimulating Hormone (TSH) 1.23 0.55-4.78 uIU/mL Urine Color Yellow Yellow Urine Clarity Clear Clear Urine pH 5.5 5.0-9.0 Urine Specific Willits 1.029 1.001-1.035 Urine Protein Trace H Negative Urine Ketones Negative Negative Urine Blood Negative Negative /uL Urine Nitrite Negative Negative Urine Bilirubin Negative Negative Urine Urobilinogen Normal Negative mg/dL Urine Leukocyte Esterase 1+ Negative /uL Urine RBC 2 0 - 4 /hpf Urine Microscopic WBC 2 0-5 /HPF Urine Squamous Epithelial Cells Few <5 /hpf Urine Bacteria None seen None Seen /hpf Urine Mucus Few None Seen Urine Glucose Normal Normal mg/dL Urine Test Negative Negative Urine Opiates Screen Neg NEGATIVE Urine Fentanyl Screen Neg NEGATIVE Urine Barbiturates Screen Neg NEGATIVE Urine Phencyclidine Screen Neg NEGATIVE Urine Amphetamines Screen Neg NEGATIVE Urine Benzodiazepines Screen Neg NEGATIVE Urine Cocaine Screen Neg NEGATIVE Urine Cannabinoids Screen Pos NEGATIVE Microbiology Date/Time Source Procedure Growth Status 06/10/25 20:47 Stool Clostridium difficile Toxin Assay - Final Complete 06/10/25 11:00 Nose MRSA Screen - Final Complete 06/09/25 23:27 Voided Urine Urine Culture - Final Complete CT SCAN ABD PELVIS IMPRESSION: 1. Wall thickening and inflammatory stranding involving portions of the colon as described above, most consistent with colitis, which may be infectious or inflammatory in nature. Correlate with clinical findings. 2. Cystic structure in the right adnexal region has increased in size compared to prior exams. Correlate with clinical findings. MRI may be helpful to further characterize if clinically indicated. 3. Stranding of the ventral abdominal wall appears similar compared to the prior exam, may be sequelae of prior intervention and/or prior inflammation. Correlate with clinical history. 4. Additional findings as described above. Problems(with codes): (1) Abnormal finding on GI tract imaging (2) Ulcerative colitis (3) Anemia (4) GI bleed (5) Bright red blood per rectum Plan/Recommendation Assessment plan Patient was diagnosed with ulcerative pancolitis in September of [address] Richard [facility]als [facility] She has been treated with mesalamine and prednisone in the past and then had gone off medications She had a recent hospitalization April with a flare-up and now she presents again with worsening diarrhea and abdominal pain and rectal bleeding after eating some contaminated food Oral prednisone does not appear to be controlling her symptoms we will start her on IV Solu-Medrol Continue mesalamine 800 mg p.o. three times a day ; Questran 4 g packet p.o. daily Stool for bacterial culture and C diff is negative Plan discussed with: Other (None) JESSICA PEDRAZA MD Jun 13, 2025 16:15
[2025-06-13] MEDS: methylPREDNISolone SOD SUCC 40 MG/ML VL IV SCH (21:06)
[2025-06-14] VITALS (7 sets, daily range): BP systolic 112–121; BP diastolic 65–80; PULSE 72–103; RESP 16–18; TEMP 97.2–99.1; O2SAT 96–98
[2025-06-14 06:16] LABS: Hematocrit 36.1 % (36.0-46.0); Hemoglobin 11.5 g/dL (12.2-16.2); Mean Corpuscular Hemoglobin 25.2 pg (28.0-32.0); Mean Corpuscular Volume 79.3 fL (80.0-100.0); Nucleated Red Blood Cells % 0.1 %
[2025-06-14 06:47] LABS: Alanine Aminotransferase 14 U/L (7-40); Albumin 4.0 g/dL (3.2-4.8); Alkaline Phosphatase 77 U/L (46-116); Anion Gap 7 (5-15); BUN/Creatinine Ratio 12.1 (10.0-20.0); Bilirubin, Total 0.4 mg/dL (0.2-1.0); Calcium 10.0 mg/dL (8.7-10.4); Carbon Dioxide 28 mmol/L (20-31); Chloride 104 mmol/L (98-107); Potassium 4.7 mmol/L (3.5-5.1); Sodium 139 mmol/L (136-145); Total Protein 6.6 g/dL (5.7-8.2)
[2025-06-14 06:50] LABS: Blood Urea Nitrogen 8 mg/dL (9-23); Glucose 128 mg/dL (74-106)
[2025-06-14] MEDS: LOPERAMIDE HCL 2 MG CAP/TAB PO PRN (10:44)
--- NOTE | 2025-06-14 16:27 | DVHPNRES ---
Progress Note Date Seen: Jun 14, 2025 Resident Creating Document: A Medical Necessity Reason Pt with a Central, PICC or Fol: No Subjective Review of Systems Patient is 39 years old female with past medical history of ulcerative colitis, bilateral ovarian cyst, hemorrhoids, hepatic steatosis, ?hepatic lesion came with a complaint of bleeding per rectum and diarrhea. Patient reports having bleeding per rectum for last 7 days along with diarrhea, several times a day and she also saw blood and mucus in her stools. she reports cramping abdominal pain before each bowel movement, pain is intermittent, 10/10, relieved with defecation an increased by any change in position, drinking or eating. further inquiry she says she has dizziness, fatigue and feels slightly tired. Patient also endorsed bilateral leg swelling for last 1 week. Patient denied any fever, nausea, acute joint redness, chest pain or shortness of breath. She reports that she and her friend had coffee and both of them got diarrhea but her friends diarrhea got resolved while her status and which prompted her to visit. Patient was discharged from [facility] on Apr, 2025 for acute exacerbation of ulcerative colitis. Past Medical History: ulcerative colitis, bilateral ovarian cyst, hemorrhoids, hepatic steatosis, hepatic lesion Past Surgical History: , b/l tubal ligation, fat transplant on the right thigh, removal of ovarian cysts Family History: Dad has diabetes mellitus Past Social History: Smokes marijuana, denies smoking cigarettes, denies alcoholism/lives with kids Allergy- none home medication: mesalamine tabs Review of systems: The patient was seen and examined at the bedside. Overnight events were reviewed. Patient reports feeling a bit better, rates her pain abdomen 5/10 in intensity, and she reports that she has defecated 2 times today morning and the 1st stool had blood clots in it with a 2nd stool she could see more stool and less blood. Objective vital signs Vital Sign Date Time Temp Pulse Resp B/P (MAP) Pulse Ox O2 Delivery O2 Flow Rate FiO2 06/14/25 12:39 98.0 103 18 113/71 (85) 96 98.0 06/14/25 08:00 Room Air* 0 21 Total Intake and Output 06/13/25 06/13/25 06/14/25 15:00 23:00 07:00 Intake Total 118 ml 850 ml 600 ml Balance 118 ml 850 ml 600 ml medications Current Medications Medications Dose Ordered Sig/Piper Route Start Time Stop Time Status Last Admin Dose Admin Pantoprazole Sodium 40 mg DAILY IV 06/10/25 10:00 06/14/25 10:45 40 MG Ergocalciferol 50,000 unit Q7D PO 06/10/25 07:30 06/10/25 08:36 50,000 UNIT Acetaminophen 650 mg Q4HP PRN PO 06/11/25 10:00 06/14/25 10:44 650 MG Dicyclomine HCl 20 mg QID PRN PO 06/11/25 10:00 Gabapentin 100 mg TID PO 06/11/25 22:00 06/14/25 14:04 100 MG Morphine Sulfate 1 mg Q6HP PRN IV 06/12/25 08:30 06/13/25 21:06 1 MG Cholestyramine Resin 4 gm Q12HR@ PO 06/12/25 11:00 06/14/25 10:45 4 GM Loperamide HCl 2 mg Q3H PRN PO 06/12/25 10:00 06/14/25 10:44 2 MG Methylprednisolone Sodium Succinate 40 mg Q8HR IV 06/13/25 22:00 06/14/25 14:04 40 MG Examination Pt is lying on bed General Appearance: Alert, Oriented X3, Cooperative, Mild distress HEENT: Atraumatic, Mucous membranes moist/pink Respiratory: Clear to auscultation, Normal air movement, No added sounds Cardiovascular: Regular rate, Normal S1, Normal S2, No murmurs Abdominal/ : Active bowel sounds, Soft, no distention, no tenderness Extremities: No edema, Normal pulses, No tenderness/swelling Skin: No Significant rash, except past surgical scars Neuro: Normal speech, sensorimotor deficits none Psych/Mental Status: Mental status NL, Mood NL Nurse was there as multiple tube winding machine operator during examination laboratory and microbiology Laboratory Tests 06/14/25 05:12 Test 06/14/25 05:12 Range/Units Serum Glucose 128 H 74-106 mg/dL Microbiology Date/Time Source Procedure Growth Status 06/10/25 20:47 Stool Clostridium difficile Toxin Assay - Final Complete 06/10/25 11:00 Nose MRSA Screen - Final Complete 06/09/25 23:27 Voided Urine Urine Culture - Final Complete Labs and/or images reviewed: Labs reviewed by me, Image(s) reviewed by me Problem List/Assessment/Plan Problem List/Assessment/Plan # Bleeding per rectum likely due to acute exacerbation of ulcerative colitis # severe ulcerative colitis # Hematochesia # R/o C. diff #SIRS likely due to acute exacerbation of ulcerative colitis -colonoscopy on 09/2024 revealed pancolitis, hemorrhoids - Ct abd/pel shows wall thickening and inflammatory stranding involving portions of the colon as described above, most consistent with colitis, which may be infectious or inflammatory in nature. -ordered methylprednisolone 20 mg IV q.8h held untill ruled out c. diff -ordered ciprofloxacin 400 mg IV b.i.d. and metronidazole 500 mg IV q.8h -GI consult suggested: Oral prednisone does not appear to be controlling her symptoms we will start her on IV Solu-Medrol. Continue mesalamine 800 mg p.o. three times a day ; Questran 4 g packet p.o. daily -Clostridium difficile toxin, stool WBC, stool ova and parasite came negative -pending ESR, CRP -stool for occult blood again because initial FOB negative but patient saying she had another bloody diarrhea so ordered again which came positive - mesalamine home medication resumed -pain medication change from morphine to Bentyl and Tylenol -morphine 1 mg p.r.n. was added for abdominal pain. -cholestyramine 4 g and prednisone 60 mg added. -prednisone tapering plan: - GI seen the patient ans started on Solumedrol 40mg daily IV 40 mg for another 7 days 30 mg for next 7 days 20 mg for next 7 days and 10 mg for the last 7 days, # history of hemorrhoids -avoid constipation # mild anemia -monitor CBC # bilateral leg swelling, ruled out DVT -Doppler study of the lower extremity: There is no evidence for DVT in either lower extremity. # bilateral ovarian cyst -follow up outpatient with Gynecology and manager code # substance abuse cannabinoids -UDS positive for cannabinoids -patient was counseled about the effect of substance abuse on health # paresthesia of the right upper leg/thigh likely due to surgery -gabapentin given # hypokalemia -Repleting -Monitor labs PCP- [facility]- Rafa Stevens PULoi prophylaxis: Pantoprazole DVT prophylaxis: Patient ambulating Diet- soft mechanical diet Goals of care, Code status FULL CODE ; discussed with >27 minutes Plan discussed with Dr. Stevens, nursing staff, patient Plan discussed with: Patient, Other (rn) My Orders My Orders Orders - ESTELLA ADAMSON RESIDENT Procedure Category Date Status Time Mechanical Soft Diet DIET 06/14/25 Transmitted Breakfast Dietary Evaluation Review Comments: 1. CCHO-60 diet 2. Avoid cannabinoids 3. Vit D supplementation Expected Outcomes/Goals: no NVD Date of Service: Jun 14, 2025 Billing Provider: HORACE STEVENS MD Common Visit Codes: [id number] INP/OBS CARE(HIGH) ESTELLA ADAMSON RESIDENT Jun 14, 2025 16:27 BALDO MALIK RESIDENT Jun 14, 2025 17:33 HORACE STEVENS MD Jun 14, 2025 19:20
[2025-06-15 01:00] VITALS: BP 108/76; PULSE 95; RESP 16; TEMP 97.5; O2SAT 95
[2025-06-15 05:07] VITALS: BP 119/73; PULSE 76; RESP 16; TEMP 96.7; O2SAT 98
[2025-06-15 05:38] LABS: Hematocrit 34.0 % (36.0-46.0); Hemoglobin 11.1 g/dL (12.2-16.2); Mean Corpuscular Hemoglobin 25.9 pg (28.0-32.0); Mean Corpuscular Volume 79.4 fL (80.0-100.0); Nucleated Red Blood Cells % 0.0 %
[2025-06-15 05:42] LABS: Anion Gap 6 (5-15); Carbon Dioxide 28 mmol/L (20-31); Chloride 105 mmol/L (98-107); Potassium 4.4 mmol/L (3.5-5.1); Sodium 139 mmol/L (136-145)
[2025-06-15 05:43] LABS: Calcium 9.3 mg/dL (8.7-10.4)
[2025-06-15 05:48] LABS: BUN/Creatinine Ratio 22.0 (10.0-20.0); Blood Urea Nitrogen 13 mg/dL (9-23); Glucose 132 mg/dL (74-106)
[2025-06-15 08:30] VITALS: BP 100/68; PULSE 69; RESP 18; TEMP 97.7; O2SAT 97
[2025-06-15 13:00] VITALS: BP 108/75; PULSE 81; RESP 20; TEMP 98.4; O2SAT 98
[2025-06-15 13:26] VITALS: BP 108/75; PULSE 81; RESP 20; TEMP 98.4; O2SAT 98
[2025-06-15] MEDS ORDERED: PRED20TA2 PO (13:45)
[2025-06-15] MEDS ORDERED: GAB100C PO (13:45)
[2025-06-15] MEDS ORDERED: ERGO1CAP23 PO (13:45)
[2025-06-15] MEDS ORDERED: CHL4PW PO (13:45)
[2025-06-15] MEDS ORDERED: BACDST PO (13:45)
--- NOTE | 2025-06-15 14:04 | DVHDSRES ---
Discharge Summary Date of Admission Resident Creating Document: ESTELLA ADAMSON RESIDENT Jun 10, 2025 at 02:15 Date of Discharge: Jun 15, 2025 Admitting Diagnosis # Bleeding per rectum likely due to acute exacerbation of ulcerative colitis Labs/Diagnostic Data: Laboratory Results Test 06/15/25 05:05 06/14/25 05:12 06/13/25 05:00 06/11/25 14:35 White Blood Count 12.6 10^3/uL (4.4-10.8) Red Blood Count 4.28 10^6/uL (4.0-5.20) Hemoglobin 11.1 g/dL (12.2-16.2) Hematocrit 34.0 % (36.0-46.0) Mean Corpuscular Volume 79.4 fL (80.0-100.0) Mean Corpuscular Hemoglobin 25.9 pg (28.0-32.0) Mean Corpuscular Hemoglobin Concent 32.6 g/dL (32.0-36.0) Red Cell Distribution Width 14.6 % (11.8-14.3) Platelet Count 532 10^3/uL (140-450) Mean Platelet Volume 6.5 fL (6.9-10.8) Neutrophils (%) (Auto) 77.4 % (37.0-80.0) Lymphocytes (%) (Auto) 14.0 % (10.0-50.0) Monocytes (%) (Auto) 8.4 % (0.0-12.0) Eosinophils (%) (Auto) 0.1 % (0.0-7.0) Basophils (%) (Auto) 0.1 % (0.0-2.0) Neutrophils # (Auto) 9.8 10 ^3/uL (1.6-8.6) Lymphocytes # (Auto) 1.8 10 ^3/uL (0.4-5.4) Monocytes # (Auto) 1.1 10 ^3/uL (0-1.3) Eosinophils # (Auto) 0 10 ^3/uL (0-0.8) Basophils # (Auto) 0 10 ^3/uL (0-0.2) Nucleated Red Blood Cells 0.0 % Sodium Level 139 mmol/L (136-145) Potassium Level 4.4 mmol/L (3.5-5.1) Chloride Level 105 mmol/L (98-107) Carbon Dioxide Level 28 mmol/L (20-31) Anion Gap 6 (5-15) Blood Urea Nitrogen 13 mg/dL (9-23) Creatinine 0.59 mg/dL (0.550-1.02) Glomerular Filtration Rate Calc 118 mL/min (>90) BUN/Creatinine Ratio 22.0 (10.0-20.0) Serum Glucose 132 mg/dL (74-106) Calcium Level 9.3 mg/dL (8.7-10.4) Total Bilirubin 0.4 mg/dL (0.2-1.0) Aspartate Amino Transferase (AST) 19 U/L (13-40) Alanine Aminotransferase (ALT) 14 U/L (7-40) Alkaline Phosphatase 77 U/L (46-116) Total Protein 6.6 g/dL (5.7-8.2) Albumin 4.0 g/dL (3.2-4.8) Magnesium Level 2.0 mg/dL (1.6-2.6) Stool Occult Blood Positive (Negative) Stool Occult Blood Sample #3 (Negative) Test 06/10/25 20:47 06/10/25 06:10 06/09/25 23:39 06/09/25 23:27 Stool for White Cells None seen Erythrocyte Sedimentation Rate 26 mm/hr (0-20) Prothrombin Time 10.8 sec (9.3-11.8) Prothrombin Time INR 1.02 (0.9-1.15) Activated Partial Thromboplast Time 27.6 SEC (24.5-34.5) Hemoglobin A1c 5.3 % A1C (<5.7) Lactic Acid Level 0.9 mmol/L (0.4-2.0) C-Reactive Protein High Sensitivity 1.93 mg/dL (<1.0) Lipase 33 U/L (12-53) Vitamin B12 Level 469 pg/mL (211-911) Vitamin D 25-Hydroxy 25.6 ng/mL (30.0-100) Folic Acid 8.97 ng/mL (>5.38) Thyroid Stimulating Hormone (TSH) 1.23 uIU/mL (0.55-4.78) Urine Color Yellow (Yellow) Urine Clarity Clear (Clear) Urine pH 5.5 (5.0-9.0) Urine Specific [place] 1.029 (1.001-1.035) Urine Protein Trace (Negative) Urine Ketones Negative (Negative) Urine Blood Negative /uL (Negative) Urine Nitrite Negative (Negative) Urine Bilirubin Negative (Negative) Urine Urobilinogen Normal mg/dL (Negative) Urine Leukocyte Esterase 1+ /uL (Negative) Urine RBC 2 /hpf (0 - 4) Urine Microscopic WBC 2 /HPF (0-5) Urine Squamous Epithelial Cells Few /hpf (<5) Urine Bacteria None seen /hpf (None Seen) Urine Mucus Few (None Seen) Urine Glucose Normal mg/dL (Normal) Urine Test Negative (Negative) Urine Opiates Screen Neg (NEGATIVE) Urine Fentanyl Screen Neg (NEGATIVE) Urine Barbiturates Screen Neg (NEGATIVE) Urine Phencyclidine Screen Neg (NEGATIVE) Urine Amphetamines Screen Neg (NEGATIVE) Urine Benzodiazepines Screen Neg (NEGATIVE) Urine Cocaine Screen Neg (NEGATIVE) Urine Cannabinoids Screen Pos (NEGATIVE) Other Laboratory Tests 06/15/25 05:05 Brief Hx & Hospital Course: Patient is 39 years old female with past medical history of ulcerative colitis, bilateral ovarian cyst, hemorrhoids, hepatic steatosis, ?hepatic lesion came with a complaint of bleeding per rectum and diarrhea. Patient reports having bleeding per rectum for last 7 days along with diarrhea, several times a day and she also saw blood and mucus in her stools. she reports cramping abdominal pain before each bowel movement, pain is intermittent, 10/10, relieved with defecation an increased by any change in position, drinking or eating. further inquiry she says she has dizziness, fatigue and feels slightly tired. Patient also endorsed bilateral leg swelling for last 1 week. Patient denied any fever, nausea, acute joint redness, chest pain or shortness of breath. She reports that she and her friend had coffee and both of them got diarrhea but her friends diarrhea got resolved while her status and which prompted her to visit. Patient was discharged from [facility] on Apr, 2025 for acute exacerbation of ulcerative colitis. Past Medical History: ulcerative colitis, bilateral ovarian cyst, hemorrhoids, hepatic steatosis, hepatic lesion Past Surgical History: , b/l tubal ligation, fat transplant on the right thigh, removal of ovarian cysts Family History: Dad has diabetes mellitus Past Social History: Smokes marijuana, denies smoking cigarettes, denies alcoholism/lives with kids Allergy- none home medication: mesalamine tabs Brief history of hospitalization: Patient came in with bleeding per rectum likely due to acute exacerbation of ulcerative colitis. Patient had severe ulcerative colitis and hematochezia. sirs likely due to acute exacerbation of ulcerative colitis. We ruled out C diff. On 09/2024 revealed pancolitis, hemorrhoids. CT abdomen pelvis shows wall thickening and inflammatory stranding involving portions of the colon as described above and most consistent with colitis, which may be infectious or inflammatory in nature. We then ordered oral prednisolone. Ciprofloxacin and metronidazole was given as well and a GI consult was done who suggested oral prednisolone was not appearing to control her symptoms so she was started on IV methylprednisolone. Patient was continued on mesalamine 800 mg p.o. twice a day and GI also gave her Questran 4 g packet p.o. daily. Stool WBC ova and parasites came negative. Stool for occult blood was done again because initial FOBT was negative but the 2nd time it came positive. Mesalamine home medication was resumed and patient had Pentacel, Tylenol, morphine for her pain control. Cholestyramine and prednisolone was added as well patient has been on a tapering dose of methylprednisolone for now. Patient has a history of hemorrhoids as well and has been counseled regarding the need to avoid constipation. For a mild anemia we monitored CBC. Her bilateral leg swelling we ruled out DVT as Doppler study of the lower extremity showed there was no evidence of deep VT in either lower extremities. For her Bilateral ovarian cyst, patient has been counseled about following up outpatient with obstetrics and gynecology. Patient has a substance abuse of cannabinoid seen in UDS and she has been counseled over 20 minutes about effect of substance abuse on health and the need of cessation. Patient also had paresth/cuca of the right upper leg/ thigh likely due to her surgery for liposuction and gabapentin was given. For her hypokalemia potassium was repleted and labs were monitored. Patient is now stable for discharge and communicates understanding regarding her home medication of prednisolone that will be tapered slowly. She has been counseled meet her primary care physician and follow up with GI outpatient. Patient communicated understanding. Pt is lying on bed General Appearance: Alert, Oriented X3, Cooperative, Mild distress HEENT: Atraumatic, Mucous membranes moist/pink Respiratory: Clear to auscultation, Normal air movement, No added sounds Cardiovascular: Regular rate, Normal S1, Normal S2, No murmurs Abdominal/ : Active bowel sounds, Soft, no distention, no tenderness Extremities: No edema, Normal pulses, No tenderness/swelling Skin: No Significant rash, except past surgical scars Neuro: Normal speech, sensorimotor deficits none Psych/Mental Status: Mental status NL, Mood NL Nurse was there as draw furnace tender during examination Operations or Procedures Extremity venous study IMPRESSION: There is no evidence for DVT in either lower extremity. CT abdomen pelvis IMPRESSION: 1. Wall thickening and inflammatory stranding involving portions of the colon as described above, most consistent with colitis, which may be infectious or inflammatory in nature. Correlate with clinical findings. 2. Cystic structure in the right adnexal region has increased in size compared to prior exams. Correlate with clinical findings. MRI may be helpful to further characterize if clinically indicated. 3. Stranding of the ventral abdominal wall appears similar compared to the prior exam, may be sequelae of prior intervention and/or prior inflammation. Correlate with clinical history. 4. Additional findings as described above. Condition at Discharge: Stable Final Diagnosis/Problems List # Bleeding per rectum likely due to acute exacerbation of ulcerative colitis # severe ulcerative colitis # SIRS likely due to acute exacerbation of ulcerative colitis # Hematochesia # Ruled out C. diff # history of hemorrhoids # mild anemia # bilateral leg swelling, ruled out DVT # bilateral ovarian cyst # substance abuse cannabinoids # paresthesia of the right upper leg/thigh likely due to surgery # hypokalemia Discharge Disposition: Home Discharge Instruct/Medications Diet: Consistent carbohydrate, Cardiac 2g Na,low cholest Activity: No Restrictions, As Tolerated Follow Up/Referral: follow up with GI and PCP follow up in discharge clinic in 1 week Medications: as per emr resume home meds Scheduled Ergocalciferol (Vitamin D 99291 Unit), 50,000 UNIT PO Q7D Gabapentin (Gabapentin), 100 MG PO BID Mesalamine (Mesalamine Dr), 1.2 GM PO BID Prednisone (Prednisone), 40 MG PO BID Senna (Senokot), 1 TAB PO BID Sulfamethoxazole W/Trimethopri (Bactrim Ds Tablet), 1 TAB PO DAILY Scheduled PRN Cholestyramine (Questran Powder), 4 GM PO DAILYPRN PRN Miscellaneous Medications Acetaminophen (Acetaminophen), 250 MG PO, (Reported) Discharge Statement: "Patient was advised to return to the ER or call 911 if any headaches, dizziness, shortness of breath, chest pain, abdominal pain, bleeding, fevers, or worsening of medical condition. Patient was counseled about treatment plan, medications, possible side effects, patientverbalized understanding. All questions were answered to the best of my ability. This discharge took greater then 30 minutes in planning, reviewing documentation, counseling the patient, and discussing with other team members." ASSESSMENT ASSESSMENT Assessment # Bleeding per rectum likely due to acute exacerbation of ulcerative colitis # severe ulcerative colitis # Hematochesia # R/o C. diff #SIRS likely due to acute exacerbation of ulcerative colitis # history of hemorrhoids # mild anemia # bilateral leg swelling, ruled out DVT # bilateral ovarian cyst # substance abuse cannabinoids # paresthesia of the right upper leg/thigh likely due to surgery # hypokalemia Date of Service: Jun 15, 2025 Billing Provider: HORACE STEVENS MD Common Visit Codes: 04020-LKF/OBS DISCH DAY >30min ESTELLA ADAMSON RESIDENT Jun 15, 2025 14:04 BALDO MALIK RESIDENT Jun 15, 2025 14:47 HORACE STEVENS MD Jun 15, 2025 18:23
--- NOTE | 2025-06-15 22:56 | DVHPN2 ---
Progress Note - Dictate Date Seen: Jun 15, 2025 (Late entryTime of visit 1:00 p.m.) Medical Necessity Reason Pt with a Central, PICC or Fol: No Subjective No new complaints Tolerating diet vital signs Vital Sign Date Time Temp Pulse Resp B/P (MAP) Pulse Ox O2 Delivery O2 Flow Rate FiO2 06/15/25 13:26 98.4 81 20 98 06/15/25 13:00 108/75 (86) 06/15/25 08:00 Room Air* 0 21 Total Intake and Output 06/14/25 06/14/25 06/15/25 15:00 23:00 07:00 Intake Total 625 ml 130 ml Balance 625 ml 130 ml objective General Appearance: Alert, Oriented X3, Cooperative, no distress HEENT: Atraumatic, Mucous membranes moist/pink Respiratory: Clear to auscultation, Normal air movement, No added sounds Cardiovascular: Regular rate, Normal S1, Normal S2, No murmurs Abdominal/ : Active bowel sounds, Soft, no distention, no tenderness Extremities: No edema, Normal pulses, No tenderness/swelling Skin: No Significant rash, except past surgical scars Neuro: Normal speech, sensorimotor deficits none Psych/Mental Status: Mental status NL, Mood N laboratory and microbiology Laboratory Tests 06/15/25 05:05 Test 06/15/25 05:05 Range/Units Serum Glucose 132 H 74-106 mg/dL Problems(with codes): (1) Ulcerative colitis (2) Bright red blood per rectum (3) Abnormal finding on GI tract imaging (4) GI bleed (5) Anemia Prognosis Plan Discharge planning in his in progress Patient did have some areas of bruising and hematoma related to recent liposuction Discharge planning on mesalamine Medrol Dosepak taper and cholestyramine Outpatient follow up with GI Services to discuss elective colonoscopy and ongoing management of colitis Dietary Evaluation Review Comments: 1. CCHO-60 diet 2. Avoid cannabinoids 3. Vit D supplementation Expected Outcomes/Goals: no NVD Plan discussed with: Other (None) JESSICA PEDRAZA MD Jun 15, 2025 22:56
== END 2025-06-15 14:20 | disposition home or self-care (01) | DRG 245 ==
LOC: ER 23:07 → OVERFLOW 06-10 02:15 → CENTRAL 06-11 03:27
PROVIDERS: ADMIT Internal Medicine; ATTEND Internal Medicine
DX: K51.911 Ulcerative colitis, unspecified with rectal bleeding (principal); R65.10 Systemic inflammatory response syndrome (SIRS) of non-infectious origin without acute organ dysfunction; D64.9 Anemia, unspecified; N83.201 Unspecified ovarian cyst, right side; N83.202 Unspecified ovarian cyst, left side; F12.10 Cannabis abuse, uncomplicated; E87.6 Hypokalemia; K64.9 Unspecified hemorrhoids; Z98.51 Tubal ligation status; Z98.891 History of uterine scar from previous surgery; Z83.3 Family history of diabetes mellitus; Z79.899 Other long term (current) drug therapy
CPT/HCPCS: 36415; 74176; 80048; 80053; 80307; 81001; 81025; 82270; 82306; 82607; 82746; 83036; 83605; 83690; 83735; 84443; 85014; 85018; 85025; 85048; 85610; 85652; 85730; 86141; 86850; 86900; 86901; 87045; 87081; 87086; 87177; 87427; 87493; 93970; G0378; J2405; J2470; J3480; J3490

== ENCOUNTER 2025-11-14 18:05 | Emergency (ER) | payer MEDICAID ==
[~2025-11-14] VITALS: Ht 162.6 cm; Wt 86.7 kg
[~2025-11-14 18:05] MED LIST changes: +ACET-2058 PO; +BACDST PO; +CHL4PW PO; +ERGO1CAP23 PO; +GAB100C PO; +PRED20TA2 PO
--- NOTE | 2025-11-14 18:38 | ED.PDOC ---
History of Present Illness HPI Comments 40-year-old female presents to the ER with the chief complaint of flank pain. Patient reports on having right flank pain associated with the right upper quadrant pain for the past week. Patient notes that she also did cut her left 2nd distal metacarpal region of the hand leaving a 1 cm laceration. Denies any other symptoms at this time. Denies chills, fever, N/V/D, SOB, CP. No other associated symptoms, modifiers, recent injuries or sick contacts present at this time. Chief Complaint: Flank Pain Time Seen by MD: 18:00 Primary Care Provider: MIHAELA Reviewed Notes: Nurses Notes, Medications, Allergies Allergies: Coded Allergies: NO KNOWN ALLERGIES (Unverified , 11/26/14) Home Meds Active Scripts Gabapentin (Gabapentin) 100 Mg Cap, 100 MG PO BID for 30 Days, #60 CAP Prov:CORRINE DENT RESIDENT 06/15/25 Ergocalciferol (VITAMIN D 71978 UNIT) 50,[address] [place], [address] UNIT PO Q7D for 90 Days, #14 CAP Prov:CORRINE DENT [facility] 06/15/25 Cholestyramine (QUESTRAN POWDER) 4 Gm Pw, 4 GM PO DAILYPRN PRN for 15 Days, #15 POW Prov:CORRINE DENT [facility] 06/15/25 Sulfamethoxazole W/Trimethopri (Bactrim Ds Tablet) 1 Tab Tb, 1 TAB PO DAILY for 40 Days, #40 TAB Prov:CORRINE DENT 06/15/25 Prednisone (Prednisone) 20 Mg Tab, 40 MG PO BID for 30 Days, #74 MG take 40mg po twice a day by mouth for 7 days, then 30mg po twice a day by mouth for 7 days, then 20mg po twice a day by mouth for 7 days, then 10mg po twice a day by mouth for 7 days, then 10mg po daily for 7 days Prov:CORRINE DENT 06/15/25 Senna (Senokot) 8.6 Mg Tab, 1 TAB PO BID, #40 TAB Prov:MATT CARCAMO MD 04/17/25 Mesalamine (Mesalamine Dr) 1.2 Gm Tab, 1.2 GM PO BID, #60 TAB Prov:MATT CARCAMO MD 04/17/25 Reported Medications Acetaminophen (Acetaminophen) 160 Mg/5 Ml Chen, 250 MG PO, ML 06/10/25 Information Source: Patient Mode of Arrival: Ambulatory Severity: Moderate Timing: Days Duration: Since onset, Days Prehospital treatment: None Past Medical History PAST MEDICAL HISTORY: Denies Surgical History: , 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: Ovarian Cysts Family History Family History: Reviewed,noncontributory to illness, Unknown Social History Smoker: Non-Smoker Alcohol: Denies ETOH Use Drugs: Denies Drug Use Lives In: Home Constitutional: denies: chills, diaphoresis, fatigue, fever, malaise, sweats, weakness, others EENTM: denies: blurred vision, double vision, ear bleeding, ear discharge, ear drainage, ear pain, ear ringing, eye pain, eye redness, hearing loss, mouth pain, mouth swelling, nasal discharge, nose bleeding, nose congestion, nose pain, photophobia, tearing, throat pain, throat swelling, voice changes, others Respiratory: denies: cough, hemoptysis, orthopnea, SOB at rest, shortness of breath, SOB with excertion, stridor, wheezing, others Cardiovascular: denies: chest pain, dizzy spells, diaphoresis, Dyspnea on exertion, edema, irregular heart beat, left arm pain, lightheadedness, palpitations, PND, syncope, others Gastrointestinal: reports: abdominal pain; denies: abdomen distended, blood streaked bowels, constipated, diarrhea, dysphagia, difficulty swallowing, hematemesis, melena, nausea, poor appetite, poor fluid intake, rectal bleeding, rectal pain, vomiting, others Genitourinary: reports: flank pain (Right side); denies: abnormal vagina bleeding, burning, dyspareunia, dysuria, frequency, hematuria, incontinence, pain, , vagina discharge, urgency, others Neurological: denies: dizziness, fainting, headache, left sided numbness, left sided weakness, numbness, paresthesia, pre-existing deficit, right sided numbness, right sided weakness, seizure, speech problems, tingling, tremors, weakness, others Musculoskeletal: denies: back pain, gout, joint pain, joint swelling, muscle pain, muscle stiffness, neck pain, others Integumetry: reports: laceration (left 2nd distal metacarpal region of the hand leaving a 1 cm laceration.); denies: bruises, change in color, change in hair/nails, dryness, lesions, lumps, rash, wounds, others Allergic/Immunocompromised: denies: Difficulty Healing, Frequent Infections, Hives, Itching, others Hematologic/Lymphatic: denies: anemia, blood clots, easy bleeding, easy bruising, swollen glands, others Endocrine: denies: excessive hunger, excessive sweating, excessive thirst, excessive urination, flushing, intolerance to cold, intolerance to heat, unexplained weight gain, unexplained weight loss, others Psychiatric: denies: anxiety, bipolar disorder, depression, hopeless, panic disorder, schizophrenia, sleepless, suicidal, others All Other Systems: Reviewed and Negative Physical Exam Exam Comments Right upper quadrant and right flank tenderness, appears uncomfortable,left 2nd distal metacarpal region of the hand has a 1 cm laceration. General Appearance: No Apparent Distress, Normal HEENT: Normal ENT Inspection, Pharynx Normal, TMs Normal Neck: Full Range of Motion, Non-Tender, Normal, Normal Inspection Respiratory: Chest Non-Tender, Lungs Clear, No Accessory Muscle Use, No Respiratory Distress, Normal Breath Sounds Cardiovascular: No Edema, No JVD, No Murmur, No Gallop, Normal Peripheral Pulses, Regular Rate/Rhythm Breast Exam: Deferred Gastrointestinal: No Organomegaly, Non Tender, No Pulsatile Mass, Normal Bowel Sounds, Soft Genitalia: Deferred Pelvic: Deferred Rectal: Deferred Extremities: No calf tenderness, Normal capillary refill, Normal inspection, Normal range of motion, Non-tender, No pedal edema Musculoskeletal : Apperance: Normal Neurologic: Alert, management engineer II-XII nml as Tested, No Motor Deficits, Normal Affect, Normal Mood, No Sensory Deficits Cerebellar Function: Normal Reflexes: Normal Skin: Dry, Normal Color, Warm Lymphatic: No Adenopathy Was a procedure done? Was a procedure done?: No X-Ray, Labs, Meds, VS Vital Signs Date Time Temp Pulse Resp B/P (MAP) Pulse Ox O2 Delivery O2 Flow Rate FiO2 11/14/25 18:10 97.8 94 18 111/82 97 97.8 Time of 1ST Reevaluation: 18:30 Reevaluation 1ST: Unchanged Patient Education/Counseling: Diagnosis, Treatment, Prognosis Family Education/Counseling: No Family Present SEPSIS Sepsis Screen Date sepsis recognized/suspect: Nov 14, 2025 Time Sepsis recognized/suspect: 1813 Recent Procedure: No On Antibiotic Therapy: No Respiratory Rate >20: No Heart Rate >90: No Temp<36 C (96.8 F) or >38.3 C: No SBP <90 or MAP <65 mmHG: No New Acute Mental Status Change: No Is the patient on CPAP, BIPAP,: No Vital Signs Date Time Temp Pulse Resp B/P (MAP) Pulse Ox O2 Delivery O2 Flow Rate FiO2 11/14/25 18:10 97.8 94 18 111/82 97 97.8 Critical Care Note Critical Care Time?: No Stability Stability form required: No I personally scribed for RENATA MENDOZA MD ([email or web address]) on 11/14/25 at 18:38. Electronically submitted by Tank Vargas ([email or web address]). RENATA MENDOZA MD Nov 14, 2025 18:38
[2025-11-14 18:58] LABS: Hematocrit 41.8 % (36.0-46.0); Hemoglobin 13.6 g/dL (12.2-16.2); Mean Corpuscular Hemoglobin 25.5 pg (28.0-32.0); Mean Corpuscular Volume 78.1 fL (80.0-100.0); Nucleated Red Blood Cells % 0.1 %
[2025-11-14 19:17] LABS: Alanine Aminotransferase 15 U/L (7-40); Albumin 4.3 g/dL (3.2-4.8); Alkaline Phosphatase 99 U/L (46-116); Anion Gap 7 (5-15); BUN/Creatinine Ratio 20.3 (10.0-20.0); Blood Urea Nitrogen 15 mg/dL (9-23); Calcium 9.2 mg/dL (8.7-10.4); Carbon Dioxide 26 mmol/L (20-31); Chloride 107 mmol/L (98-107); Glucose 101 mg/dL (74-106); Lipase 41 U/L (12-53); Potassium 3.8 mmol/L (3.5-5.1); Sodium 140 mmol/L (136-145); Total Protein 7.1 g/dL (5.7-8.2)
[2025-11-14 19:25] LABS: Bilirubin, Total 0.2 mg/dL (0.2-1.0)
[2025-11-14 20:34] LABS: Urine Amorphous Crystal FEW /hpf (None Seen); Urine Protein, UAD Negative (Negative)
--- NOTE | 2025-11-14 22:23 | DVH ---
CLINICAL HISTORY: Abdominal pain. TECHNIQUE: CT of the abdomen and pelvis was performed without intravenous contrast. This exam was performed according to our departmental dose optimization program. Up-to-date CT equipment and radiation dose reduction techniques are utilized as appropriate. CTDIvol: 13.8 mGy; DLP: 790 mGy-cm. COMPARISON: CT CT AB PEL WO CON-NO ORAL OR IV on DOS: 06/10/25,. FINDINGS: Lack of intravenous contrast limits assessment of the organs and vasculature. Within this limitation, the following assessment is made: Lower Chest: Lung Bases: Minimal dependent subsegmental atelectasis and/or scarring of the lung bases. Abdomen and Pelvis: Liver: Unremarkable. Gallbladder: Decompressed gallbladder that is otherwise unremarkable. No evidence of gallstones or abnormal gallbladder wall thickening. Bile Ducts: Unremarkable. Pancreas: Unremarkable. Spleen: Unremarkable. Adrenal glands: Unremarkable. Kidneys/Ureters: Unremarkable. Stomach: Small hiatal hernia. Small and Large Bowel: Unremarkable. Appendix: Normal. Vasculature: Unremarkable. No evidence of an abdominal aortic aneurysm. Lymph nodes: Unremarkable. Mesentery: No evidence of intraperitoneal free gas or liquid. Pelvic Organs: Right adnexa with a large cyst measuring 8.8 x 6.6 x 5.7 cm (AP x CC x TV; 2/85, 601/65), which exhibits a thin internal septation. Left adnexa with a physiologic follicles/possible cyst measuring 1.9 cm. Bladder: Unremarkable. Abdominal Wall: Unremarkable. Soft tissues: Unremarkable. Bones: Unremarkable. Other: None. IMPRESSION: 1. No acute intra-abdominal or intrapelvic abnormality. 2. Right adnexa with a large cyst measuring 8.8 x 6.6 x 5.7 cm (AP x CC x TV), which exhibits a thin internal septation. Recommend follow-up nonemergent outpatient pelvis ultrasound as clinically indicated and desired based on help aid recommendations.
[2025-11-15] MEDS ORDERED: GABA300T4 PO
[2025-11-15 00:30] VITALS: BP 116/82; PULSE 83; RESP 18; TEMP 98.2; O2SAT 97
== END 2025-11-15 00:37 | disposition home or self-care (01) ==
LOC: ER 18:05
DX: R10.11 Right upper quadrant pain (principal); Z98.51 Tubal ligation status; Z79.899 Other long term (current) drug therapy
CPT/HCPCS: 36415; 74176; 80053; 81001; 81025; 83690; 85025